=== PATIENT | male | born 1965 ===

== ENCOUNTER → 2020-03-04 12:38 | Outpatient (BNVA) | payer OTHER, SELFPAY | PROVIDERS: PCP Internal Medicine Endocrinology, Diabetes & Metabolism; Visit Provider Urology | DX: Z76.89 Persons encountering health services in other specified circumstances (principal) ==

== ENCOUNTER 2020-05-24 10:19 | Outpatient (REF) | payer OTHER, SELFPAY ==
--- NOTE | ~2020-05-24 | XR_ITS ---
EXAMINATION: XR HAND, LEFT CLINICAL INFORMATION: Mallet finger. COMPARISON: None TECHNIQUE: PA, lateral, and oblique views of the left hand. FINDINGS: No fracture or dislocation. Normal carpal alignment. No significant joint space narrowing or marginal osteophytes. No osseous erosion. No periarticular osteopenia. No abnormal soft tissue calcification. XR/XR hand LT min 3V IMPRESSION: Unremarkable examination.
== END 2020-05-24 10:20 | disposition home or self-care (01) ==
LOC: HO.HOSX 10:19
PROVIDERS: PCP Internal Medicine Endocrinology, Diabetes & Metabolism; Visit Provider Orthopaedic Surgery
DX: M20.012 Mallet finger of left finger(s) (principal)
CPT/HCPCS: 73130

== ENCOUNTER 2020-10-26 06:16 | Outpatient (REF) | payer OTHER, SELFPAY ==
[2020-10-26 06:59] LABS: MANUAL DIFF FLAG NO
[2020-10-26 07:04] LABS: Basophils Absolute Auto 0.1 X10*3/uL (0.0-0.2); Eosinophils Absolute Auto 0.3 X10*3/uL (0.0-0.4); Eosinophils Percent Auto 4.3 % (0-4); Hematocrit 45.7 % (42-52); Hemoglobin 15.1 g/dl (14.0-18.0); Imm Gran Abs Auto 0.02 X10*3/uL (0.00-0.03); Imm Gran Pct Auto 0.3 % (0.0-0.4); Lymphocytes Absolute Auto 2.1 X10*3/uL (1.2-4.9); Lymphocytes Percent Auto 30.3 % (20-40); Mean Corpuscular Hemoglobin 29.5 pg (27.0-33.0); Mean Corpuscular Volume 89.3 fL (80-98); Monocytes Absolute Auto 0.4 X10*3/uL (0.1-1.2); Neutrophils Percent Auto 58.1 % (45-73); Platelet Count 212 X10*3/uL (160-400); Red Blood Count 5.12 X10*6/uL (4.60-5.80); Red Cell Distribution Width 14.3 % (11.0-16.0); White Blood Count 6.8 X10*3/uL (4.8-10.8)
[2020-10-26 07:33] LABS: Alanine Aminotransferase 12 U/L (0-40); Albumin Level 4.5 g/dL (3.5-5.0); Alkaline Phosphatase 58 U/L (39-117); Amylase 49 U/L (28-100); Anion Gap 14 (12-20); Aspartate Amino Transferase 12 U/L (5-37); Bilirubin Total 0.9 mg/dL (0.0-1.0); Blood Urea Nitrogen 25 mg/dL (9-16); Calcium 9.5 mg/dL (8.4-10.2); Carbon Dioxide 27 mmol/L (22-29); Chloride 105 mmol/L (96-108); Estimated Glomerular Filt Rate > 60; Glucose Random 98 mg/dL (60-115); Lipase 29 U/L (8-78); Potassium 5.2 mmol/L (3.3-5.1); Sodium 141 mmol/L (135-145)
== END 2020-10-26 06:17 | disposition home or self-care (01) ==
LOC: HO.LAB 06:16
PROVIDERS: Visit Provider Anesthesiology
DX: R19.7 Diarrhea, unspecified (principal)
CPT/HCPCS: 36415; 80053; 82150; 83690; 85025

== ENCOUNTER → 2020-10-27 07:27 | Outpatient (REF) | payer OTHER, SELFPAY ==
--- NOTE | 2020-10-27 07:31 | CA_ITS ---
Transthoracic Echocardiogram Patient (Last, First, Middle): Evan Armstrong, Gender: Male Date of : 1965 Age: 54 Procedure Date: 10/27/2020 Procedure Type: Transthoracic Echocardiogram Location: OP Height: 175.26 cm Weight: 83.92 kg BSA: 2.00 m2 Heart Rate: bpm BP: 110 / 60 mmHg Endoscopy Support Specialist: EULALIA Dye MD: Evan Armstrong MD Telemarketer Supervisor: Mendoza Padilla MD Symptoms: HTN,PVC,ATRIAL ENLARGEMENT BILATERAL Study Quality: Good ECG Rhythm: Sinus Conclusions: - 1. Normal LV systolic and diastolic function 2. Mild left atrial enlargement 3. Normal cardiac valvular structure 4. Normal RV systolic pressure 5. No pericardial effusion Findings Left Ventricle Normal left ventricular size, thickness, and systolic function. The visually estimated ejection fraction is between 60-65%. Diastolic function is normal for age. Right Ventricle Normal right ventricular cavity size and systolic function. Atria The left atrium is mildly dilated. There is no evidence of interatrial shunt. The right atrium is normal in size. Aortic Valve Normal aortic valve structure and function. There is no aortic valve stenosis. There is no aortic valve regurgitation. Mitral Valve Normal mitral valve structure and function. There is trace mitral valve regurgitation. There is no mitral valve stenosis. Pulmonic Valve The pulmonic valve is likely normal. There is trace pulmonic valve regurgitation. Tricuspid Valve Normal tricuspid valve structure. There is trace tricuspid valve regurgitation. The right ventricular systolic pressure is normal. The right ventricular systolic pressure is 25 mmHg. Normal right atrial pressure. There is no evidence of pulmonary hypertension. Great Vessels All visible segments of the aorta are normal in size. The visualized portions of the pulmonary artery and branches are normal. Venous The inferior vena cava is normal in size and collapses greater than 50% with inspiration. Pericardium/Pleural There is no evidence of pericardial effusion. Prior Study Comparison Changes noted compared to prior study dated: 11/27/2019. Left atrium is mildly dilated, by volumetric method Measurements 2D Linear Measurements IVSd: 1.05 0.6-0.9/0.6-1.0 cm LVIDd: 5.09 3.9-5.3/4.2-5.9 cm LVIDd Index: 2.55 2.4-3.2/2.2-3.1 cm/m2 LVIDs: 3.36 2.0-3.6 cm LVPWd: 1.05 0.7-1.1 cm Ao Root: 3.60 2.1-3.5 cm LA Diam: 4.30 2.7-3.8/3.0-4.0 cm LAIDs Index: 2.15 1.5-2.3 cm/m2 LV Mass: 249.42 67-162/88-224 g LV Mass Index: 124.71 43-95/49-115 g/m2 LVOT Diam: 2.40 3.0+(-)1.3 cm 2D Systolic Function EF 4C: 59.00 >55% EF 2C: 58.00 >55% EF BiP: 59.00 >55% Mitral Valve MV Pk E: 0.52 MV PK A: 0.44 MV Decel Time: 502.00 E/A: 1.20 E'Lateral: 11.90 E'Medial: 7.40 E/E' Med: 7.00 E/E' Lat: 4.40 PHT: 147.00 MVA PHT: 1.50 Decel Brewster: 1.04 Aortic Valve AoV Pk Francisco Javier: 1.25 AoV Mn Francisco Javier: 0.86 AoV VTI: 0.31 AoV Pk Grad: 6.00 Aov Mn Grad: 3.00 HEAVEN Cont.VTI: 2.76 LVOT LVOT Pk Francisco Javier: 0.73 LVOT Mn Francisco Javier: 0.50 LVOT VTI: 0.19 LVOT Pk Grad: 2.00 LVOT Mn Grad: 1.00 LVOT Diam: 2.40 LVOT Area: 4.52 Diastolic Function MV Pk E: 0.52 MV Pk A: 0.44 E/A: 1.20 E'Medial: 7.40 E/E' Med: 7.00 E' Laterial: 11.90 E/E' Lat: 4.40 Tricuspid Valve TR Pk Francisco Javier: 2.36 TR Pk Grad: 22.00 RA Press: 3.00 RVSP: 25.00 Great Vessels Aorta Ao Root-2D: 3.60 2.0-3.7 cm Ao Asc: 3.00 2.1-3.4 cm Ao Arch: 3.10 Updated in Other Vendor System with Status of Final Mendoza Padilla MD electronically signed on 10/27/2020 9:00:22 AM with status of Final
== END ==
LOC: HO.CARD 07:27
PROVIDERS: Visit Provider Anesthesiology
DX: I10 Essential (primary) hypertension (principal); I49.3 Ventricular premature depolarization; I51.7 Cardiomegaly
CPT/HCPCS: 93306

== ENCOUNTER 2020-10-28 06:25 | Outpatient (REF) | payer OTHER, SELFPAY ==
[2020-10-28 07:28] LABS: C Reactive Protein 0.15 mg/dL (< or = 0.50)
[2020-10-28 07:52] LABS: TSH reflex Free T4 1.81 uIU/mL (0.32-4.0)
[2020-10-28 08:02] LABS: Erythrocyte Sedimentation Rate 2 MM/HR (0-15)
[2020-10-30 12:32] LABS: Immunoglobulin A 119 mg/dL (47-310)
[2020-10-30 14:32] LABS: Transglutaminase Ab IgG 1 U/mL; Transglutaminase IgA 1 U/mL
[2020-10-30 15:21] LABS: Gliadin Deamidated IgA Ab 3 Units; Gliadin Deamidated IgG Ab 1 Units
[2020-11-02 12:46] LABS: Endomysial IgA Antibody Negative (Negative)
== END 2020-10-28 06:26 | disposition home or self-care (01) ==
LOC: HO.LAB 06:25
PROVIDERS: Visit Provider Internal Medicine
DX: R19.4 Change in bowel habit (principal); R19.5 Other fecal abnormalities
CPT/HCPCS: 36415; 82784; 83516; 84443; 85652; 86140; 86255; 86256

== ENCOUNTER 2020-10-29 08:39 | Outpatient (REF) | payer OTHER, SELFPAY ==
[2020-10-29 09:52] LABS: CDiff Gene PCR NEGATIVE (Negative)
[2020-10-29 10:03] LABS: Leukocytes Stool Qualitative NEGATIVE (NEGATIVE)
== END 2020-10-29 08:40 | disposition home or self-care (01) ==
LOC: HO.LNP 08:39
PROVIDERS: Visit Provider Internal Medicine
DX: R19.4 Change in bowel habit (principal); R19.5 Other fecal abnormalities
CPT/HCPCS: 87045; 87046; 87177; 87209; 87329; 87493; 89055

== ENCOUNTER 2020-11-29 09:30 | Day surgery (SDC) | payer OTHER, SELFPAY ==
[2020-11-22 10:28] VITALS: BMI 26.9
--- NOTE | 2020-11-29 09:44 | P.CONAN_ITS ---
[facility] Active Problems Active Problems: All Active Problems (Updated 11/22/20 @ 10:29 by Pau mcdonald) Diarrhea (Acute) Mallet deformity of left middle finger (Acute) Past Medical History Medical History (Updated 11/22/20 @ 10:29 by Pau Putnam) Diarrhea Mallet deformity of left middle finger Pancreatic cyst Functional capacity: independent ambulation Family History Family history of problems with anesthesia: No Surgical History Surgical History H/O colonoscopy History of esophagogastroduodenoscopy (EGD) Hx of inguinal hernia repair History of Problems with Anesthesia: No Social History Social History Advance Directives: No Advance Directives Information Provided: Yes Meds Allergies Allergy/AdvReac Type Severity Reaction Status Date / Time No Known Allergies Allergy Verified 05/24/20 10:22 [No Known Allergies*] Active Medications: Current Medications Generic Name Dose Route Start Last Admin Trade Name Freq PRN Reason Stop Dose Admin Sodium Biphosphate/Sodium Phosphate 133 ml 11/29/20 09:43 Sodium Phosphate,[place]-Dibasic 133 Ml Enema IA ONCE PRN Poor Colonoscopy Prep Results Exam Exam Date and Time: November 29, 2020 0944 Height,Weight and Vital Signs: Height 5 ft 9.5 in Weight 83.915 kg Airway TM Dist: >3cm Neck ROM: Full Heart: RRR Lungs: CTA Assessment and Plan Final Anesthetic Review Family History of Problems with Anesthesia: No History of Problems with Anesthesia: No
[2020-11-29 10:06] VITALS: BMI 26.4
[2020-11-29] MEDS: Lactated Ringers 1,000 ML 50 ML IVCONT (10:21)
[2020-11-29 12:41] VITALS: BP 105/65; PULSE 58; RESP 16; TEMP 36.4; O2SAT 97
--- NOTE | 2020-11-29 12:43 | P.BOP_ITS ---
Brief Operative Note Date of Service: 11/29/20 Pre-op diagnosis: Change in BM's, Hx of colon polyps Post-op diagnosis: other (R/O microscopic colitis, Diverticulosis) Procedure: Colonoscopy to the cecum and TI with biopsies Surgeon: Dileep Taylor Anesthesia: MAC Was an Die Engraving Supervisor used for this Procedure?: No Estimated blood loss (mL): 3.0 Pathology: other (A. Terminal ileum B. Ascending colon C. Descending colon) Condition: stable Disposition: PACU
[2020-11-29 12:46] VITALS: BP 108/66; PULSE 62; RESP 16; O2SAT 98
[2020-11-29 12:51] VITALS: BP 105/71; PULSE 60; RESP 16; O2SAT 100
[2020-11-29 12:56] VITALS: BP 105/71; PULSE 68; RESP 16; O2SAT 98
--- NOTE | 2020-11-29 14:02 | OP_ITS ---
SURGEON: Dileep Taylor MD INDICATIONS: The patient presents for evaluation of change in bowel habits. Full consent has been obtained from him for this, including risks of bleeding and perforation. PREOPERATIVE DIAGNOSIS: Change in bowel habits. POSTOPERATIVE DIAGNOSIS: PROCEDURE PERFORMED: Colonoscopy to the cecum and terminal ileum with biopsies. ESTIMATED BLOOD LOSS: COMPLICATIONS: ANESTHESIA: ASSISTANTS: SPECIMENS: POSTOPERATIVE DIAGNOSES: Change in bowel habits, rule out microscopic colitis, mild diverticulosis, small internal hemorrhoids. DESCRIPTION OF PROCEDURE: The patient was placed in the left lateral decubitus position. The digital rectal exam revealed no abnormalities. The Olympus video pediatric colonoscope was entered into the rectum and advanced easily to the cecum. Once in the cecum, I did identify normal-appearing cecal pouch with appendiceal orifice and a normal-appearing ileocecal valve. The terminal ileum was cannulated and appeared normal. Biopsies were obtained. The scope was withdrawn back into the colon. The entire cecum and ileocecal valve appeared normal. The scope was slowly withdrawn assessing all mucosal surfaces carefully. Preparation was excellent. I did not visualize any sign of polyps, colitis, nor angiodysplasia. Random biopsies were obtained in the ascending and descending colon to rule out microscopic colitis. There was a mild amount of sigmoid diverticulosis. In the rectum, scope was retroflexed visualizing small internal hemorrhoids, but no other pathology. The rectal mucosa appeared normal. The scope was straightened out and withdrawn from the patient. He tolerated the procedure well and was returned to the recovery area in stable condition. IMPRESSION: 1. Mild sigmoid diverticulosis. 2. Small internal hemorrhoids. PLAN: The results of biopsies will be checked. At this point, he reports that his bowel movements have returned to the baseline. He will continue to be observed in this regard. Previous workup with stool specimens and laboratories, including testing for celiac disease were negative earlier this summer. I would recommend a repeat colonoscopy in 5 years given the reported history of previous colon polyps. He was advised not to use any aspirin and NSAIDs for 1 more week. MD CARLOS Correa/KAY / [id number]
== END 2020-11-29 13:20 | disposition home or self-care (01) ==
PROVIDERS: Visit Provider Internal Medicine
PROC: 0DJD8ZZ Inspection of Lower Intestinal Tract, Via Natural or Artificial Opening Endoscopic (ICD-10-PCS; CPT 45378; principal; 2020-11-29 11:00)
DX: R19.4 Change in bowel habit (principal); Z86.010 Personal history of colon polyps; K52.839 Microscopic colitis, unspecified; K57.30 Diverticulosis of large intestine without perforation or abscess without bleeding; K64.8 Other hemorrhoids; K86.2 Cyst of pancreas; I10 Essential (primary) hypertension; Z79.899 Other long term (current) drug therapy
CPT/HCPCS: 45380; 88305

== ENCOUNTER → 2021-02-03 08:28 | Outpatient (BNVA) | payer OTHER, SELFPAY | PROVIDERS: Visit Provider Internal Medicine Cardiovascular Disease | DX: I49.3 Ventricular premature depolarization (principal); I51.7 Cardiomegaly; Z79.899 Other long term (current) drug therapy | CPT/HCPCS: 93005 ==

== ENCOUNTER 2021-06-20 06:31 | Outpatient (REF) | payer OTHER, SELFPAY ==
[2021-06-20 07:12] LABS: Anion Gap 10 (12-20); Blood Urea Nitrogen 19 mg/dL (9-16); Calcium 9.4 mg/dL (8.4-10.2); Carbon Dioxide 29 mmol/L (22-29); Chloride 106 mmol/L (96-108); Estimated Glomerular Filt Rate > 60; Glucose Random 108 mg/dL (60-115); Potassium 5.1 mmol/L (3.3-5.1); Sodium 140 mmol/L (135-145)
[2021-06-20 07:17] LABS: B Type Natriuretic Peptide 14 pg/mL (<100)
== END 2021-06-20 06:32 | disposition home or self-care (01) ==
LOC: HO.LAB 06:31
PROVIDERS: Visit Provider Nurse Practitioner Family
DX: Z01.818 Encounter for other preprocedural examination (principal)
CPT/HCPCS: 36415; 80048; 83880

== ENCOUNTER 2021-06-22 07:12 | Outpatient (REF) | payer OTHER, SELFPAY ==
--- NOTE | ~2021-06-22 | MR_ITS ---
EXAMINATION: MR ABDOMEN WITHOUT AND WITH CONTRAST CLINICAL INFORMATION: Pancreatic cyst. Hepatic hemangioma. COMPARISON: 06/30/2019 TECHNIQUE: MR abdomen was performed without and with use of 8.5 mL intravenous Gadavist gadolinium contrast. Postcontrast images are performed in multiphase dynamic sequences. Imaging was performed in 3 planes. FINDINGS: LUNG BASES: The visualized lung bases are unremarkable. LIVER, GALLBLADDER, AND BILIARY TREE: The liver is normal in size, smooth in contour, and normal in signal. No biliary ductal dilatation is present. Again noted at the dome of the liver is a T2 bright, T1 dark lesion. This measures 2.1 cm. There is peripheral nodular enhancement, consistent with a hemangioma. No suspicious finding. There is a 1.1 cm simple cyst in segment 8 of the liver. This is unchanged. Additional smaller cysts are also again noted. No suspicious liver lesion. The gallbladder is unremarkable with no evidence of gallbladder wall thickening, or obvious pericholecystic inflammatory changes. PANCREAS: Unremarkable. The previously seen tiny cystic structure near the tail of the pancreas is no longer visualized. SPLEEN: Normal. ADRENAL GLANDS: Normal. KIDNEYS AND URETERS: The kidneys are normal in size, shape, and enhance symmetrically. No hydronephrosis. No perinephric stranding. 0.5 cm simple cyst anteriorly at the midpole of the right kidney. GASTROINTESTINAL TRACT: No bowel obstruction. No ascites or fluid collection. ABDOMINAL WALL: No significant hernia is appreciated. LYMPH NODES: No lymphadenopathy. VASCULAR: Normal caliber aorta. Patent portal vein. OSSEOUS STRUCTURES: Marrow signal normal. MR/MR abdomen wo/w con IMPRESSION: No suspicious liver lesions. Hemangioma at the dome of the liver again noted. Multiple hepatic cysts. The previously seen tiny cystic structure at the tail of the pancreas is no longer visualized.
== END 2021-06-22 07:13 | disposition home or self-care (01) ==
LOC: HO.MRI 07:12
PROVIDERS: Visit Provider Internal Medicine
DX: K86.2 Cyst of pancreas (principal); D18.03 Hemangioma of intra-abdominal structures
CPT/HCPCS: 74183; A9585

== ENCOUNTER 2021-07-13 06:46 | Outpatient (REF) | payer OTHER, SELFPAY ==
[2021-07-13 07:56] LABS: Alanine Aminotransferase 13 U/L (0-40); Albumin Level 4.4 g/dL (3.5-5.0); Alkaline Phosphatase 60 U/L (39-117); Aspartate Amino Transferase 15 U/L (5-37); Bilirubin Direct < 0.2 mg/dL (0.0-0.5); Bilirubin Total 0.3 mg/dL (0.0-1.0); Blood Urea Nitrogen 25 mg/dL (9-16); Estimated Glomerular Filt Rate > 60; Total Protein 6.8 g/dL (6.5-8.0)
[2021-07-14 12:32] LABS: Alpha Fetoprotein 1.3 ng/mL (<6.1)
[2021-07-14 15:11] LABS: Carbohydrate Antigen 19-9 5 U/mL (<34)
== END 2021-07-13 06:47 | disposition home or self-care (01) ==
LOC: HO.LAB 06:46
PROVIDERS: Visit Provider Internal Medicine
DX: K86.2 Cyst of pancreas (principal); D18.03 Hemangioma of intra-abdominal structures
CPT/HCPCS: 36415; 80076; 82105; 82565; 84520; 86301

== ENCOUNTER 2021-09-19 12:46 | Outpatient (REF) | payer OTHER, SELFPAY | END 2021-09-19 12:47 | disposition home or self-care (01) | LOC: HO.HOSX 12:46 | PROVIDERS: Visit Provider Orthopaedic Surgery | DX: Z13.89 Encounter for screening for other disorder (principal) ==

== ENCOUNTER 2021-09-23 09:00 | Outpatient (REF) | payer OTHER, SELFPAY ==
--- NOTE | ~2021-09-23 | XR_ITS ---
EXAMINATION: XR HAND, RIGHT CLINICAL INFORMATION: Pain COMPARISON: Previous x-ray most recent 09/05/2021 TECHNIQUE: PA, lateral, and oblique views of the right hand. FINDINGS: There is an oblique oblique nondisplaced fracture of the midshaft of the fourth metacarpal bone. Alignment appears unchanged. Fracture line is still seen. No significant bony callus formation is seen. No other fracture is seen. There is periarticular soft tissue swelling adjacent to the PIP joint of the fourth finger. Joint spaces and soft tissues are otherwise normal. XR/XR hand RT min 3V IMPRESSION: No change in the nondisplaced fracture of the shaft of the fourth metacarpal bone. Periarticular soft tissue swelling adjacent to the PIP joint of the fourth finger.
== END 2021-09-23 09:01 | disposition home or self-care (01) ==
LOC: HO.XRAY 09:00
PROVIDERS: Visit Provider Orthopaedic Surgery
DX: M79.641 Pain in right hand (principal)
CPT/HCPCS: 73130

== ENCOUNTER → 2022-01-16 07:11 | Outpatient (REF) | payer OTHER, SELFPAY ==
--- NOTE | 2022-01-16 07:15 | CA_ITS ---
Transthoracic Echocardiogram Patient (Last, First, Middle): Evan Armstrong, Gender: Male Date of : 1965 Age: 56 Procedure Date: 01/16/2022 Procedure Type: Transthoracic Echocardiogram Location: OP Height: 175.26 cm Weight: 81.65 kg BSA: 1.98 m2 Heart Rate: bpm BP: 130 / 90 mmHg Regional Business Development Manager: ALAN Referring MD: Mendoza Padilla MD Wood Inspector: Mendoza Padilla MD Symptoms: I49.3 - Ventricular premature depolarization Study Quality: Good ECG Rhythm: Sinus Conclusions: - 1. Normal LV systolic function with grade 1 diastolic dysfunction 2. Normal cardiac valvular Doppler 3. Normal RV systolic pressure 4. No pericardial effusion Findings Left Ventricle Normal left ventricular size, thickness, and systolic function. The visually estimated ejection fraction is between 60-65%. Spectral Doppler is indicative of an impaired relaxation filling pattern. E/E prime ratio is <8, consistent with normal filling pressures. Evidence suggests grade I (mild) diastolic dysfunction. Right Ventricle Normal right ventricular cavity size and systolic function. Atria The left atrium is likely dilated. The right atrium is normal in size. Aortic Valve Normal aortic valve structure and function. There is no aortic valve stenosis. There is no aortic valve regurgitation. Mitral Valve Normal mitral valve structure and function. There is trace mitral valve regurgitation. There is no mitral valve stenosis. Pulmonic Valve The pulmonic valve was not well visualized. Tricuspid Valve Likely normal tricuspid valve structure and function. There is trace tricuspid valve regurgitation. The right ventricular systolic pressure is normal. The right ventricular systolic pressure is 21 mmHg. Normal right atrial pressure. There is no evidence of pulmonary hypertension. Great Vessels All visible segments of the aorta are normal in size. The pulmonary artery was not well visualized. Venous The inferior vena cava is normal in size and collapses greater than 50% with inspiration. Pericardium/Pleural There is no evidence of pericardial effusion. Prior Study Comparison No significant change compared to prior study dated: 10/27/2020. Measurements 2D Linear Measurements IVSd: 1.05 0.6-0.9/0.6-1.0 cm LVIDd: 4.82 3.9-5.3/4.2-5.9 cm LVIDd Index: 2.43 2.4-3.2/2.2-3.1 cm/m2 LVIDs: 3.55 2.0-3.6 cm LVPWd: 1.16 0.7-1.1 cm LA Diam: 4.20 2.7-3.8/3.0-4.0 cm LAIDs Index: 2.12 1.5-2.3 cm/m2 LV Mass: 244.87 67-162/88-224 g LV Mass Index: 123.67 43-95/49-115 g/m2 LVOT Diam: 2.20 3.0+(-)1.3 cm 2D Systolic Function EF 4C: 57.30 >55% EF 2C: 63.00 >55% EF BiP: 59.40 >55% Mitral Valve MV Pk E: 0.46 MV PK A: 0.51 MV Decel Time: 285.00 E/A: 0.90 E'Lateral: 9.90 E'Medial: 7.94 E/E' Med: 5.80 E/E' Lat: 4.70 PHT: 84.00 MVA PHT: 2.62 Decel Cowley: 1.62 Aortic Valve AoV Pk Francisco Javier: 1.19 AoV Mn Francisco Javier: 0.83 AoV VTI: 0.28 AoV Pk Grad: 6.00 Aov Mn Grad: 3.00 HEAVEN Cont.VTI: 2.93 LVOT LVOT Pk Francisco Javier: 0.83 LVOT Mn Francisco Javier: 0.60 LVOT VTI: 0.22 LVOT Pk Grad: 3.00 LVOT Mn Grad: 2.00 LVOT Diam: 2.20 LVOT Area: 3.80 Diastolic Function MV Pk E: 0.46 MV Pk A: 0.51 E/A: 0.90 E'Medial: 7.94 E/E' Med: 5.80 E' Laterial: 9.90 E/E' Lat: 4.70 Right Ventricle TAPSE (mm): 24.40 TVS' Francisco Javier: 8.70 Tricuspid Valve TR Pk Francisco Javier: 2.12 TR Pk Grad: 18.00 RA Press: 3.00 RVSP: 21.00 Great Vessels Aorta Sinus of Valsalva: 3.36 2.0-3.5 cm Ao Asc: 3.00 2.1-3.4 cm Updated in Other Vendor System with Status of Final Mendoza Padilla MD electronically signed on 01/16/2022 6:34:36 PM with status of Final
== END ==
LOC: HO.CARD 07:11
PROVIDERS: Visit Provider Internal Medicine Cardiovascular Disease
DX: I49.3 Ventricular premature depolarization (principal)
CPT/HCPCS: 93306

== ENCOUNTER → 2022-02-14 15:07 | Outpatient (BNVA) | payer OTHER, SELFPAY | PROVIDERS: Visit Provider Internal Medicine Cardiovascular Disease | DX: I49.3 Ventricular premature depolarization (principal); I10 Essential (primary) hypertension | CPT/HCPCS: 93005 ==

== ENCOUNTER 2022-05-24 11:27 | Outpatient (REF) | payer OTHER, SELFPAY ==
--- NOTE | ~2022-05-24 | MR_ITS ---
EXAMINATION: MR BRAIN WITHOUT AND WITH CONTRAST CLINICAL INFORMATION: New persistent daily headache. COMPARISON: None available. TECHNIQUE: MRI of the brain was obtained using routine sequences without and following the administration of 8.5 mL of Gadavist intravenous contrast. FINDINGS: No focal restricted diffusion is demonstrated to suggest acute or subacute cerebral ischemia. No evidence of acute or chronic hemorrhagic products on heme-sensitive imaging. Minimal nonspecific scattered periventricular and deep white matter T2 FLAIR hyperintensities most commonly seen with mild underlying microangiopathy. The ventricles are normal in morphology and size. No abnormal mass effect. No midline shift. Normal appearance of the pituitary gland. The suprasellar cistern remains widely patent. Normal positioning of the cerebellar tonsils. Normal arterial and venous vascular flow voids are present. No abnormal contrast enhancement. Normal, homogeneous marrow signal. Mild mucosal thickening of the paranasal sinuses. No signal abnormalities within the mastoids. MR/MR head/brain wo/w con IMPRESSION: 1. No acute intracranial abnormalities. No abnormal intracranial enhancement. 2. Minimal nonspecific white matter changes most commonly seen with mild underlying microangiopathy. 3. No additional MRI abnormalities to explain the patient's symptoms.
== END 2022-05-24 11:28 | disposition home or self-care (01) ==
LOC: HO.MRI 11:27
PROVIDERS: Visit Provider Psychiatry & Neurology Neurology
DX: G44.52 New daily persistent headache (NDPH) (principal)
CPT/HCPCS: 70553; A9585

== ENCOUNTER 2022-09-28 08:12 | Outpatient (REF) | payer OTHER, SELFPAY ==
[2022-09-28 08:36] LABS: Appearance Urine Clear; Color Urine Yellow; Glucose Urine UA Negative (Negative); Leukocyte Esterase Urine Negative (Negative); Nitrite Urine Negative (Negative); PH 6.5 (5.0-9.0); Urine Blood Negative (Negative); Urine Ketones Negative (Negative); Urine Protein Negative (Neg-Trace)
[2022-09-28 08:41] LABS: Bacteria Urine None Seen (None Seen); Hyaline Casts Urine 0-2 /LPF (0-2); RBC Urine 0-2 /HPF (0-2); Squamous Epithelial Cell Urine 0-2 /HPF (0-2); WBC Urine 0-5 /HPF (0-5)
== END 2022-09-28 08:13 | disposition home or self-care (01) ==
LOC: HO.LNP 08:12
PROVIDERS: Visit Provider Anesthesiology
DX: N39.0 Urinary tract infection, site not specified (principal)
CPT/HCPCS: 81001; 87086

== ENCOUNTER 2023-02-26 08:12 | Outpatient (AMB) | payer OTHER, SELFPAY ==
--- NOTE | 2023-02-26 08:19 | A.OFFVIS_ITS ---
Intake Vital Signs 02/26/23 08:20 Height 5 ft 9.5 in Weight 196 lb 3.382 oz BMI 28.6 BP 112/78 Blood Pressure Location Lt brachial Position Sitting Pulse 65 Intake Visit Reasons: 1 yr f/up Intake Note: 1 year follow-up with ekg feeling good Staff Mine Warfare Officer Required: No Allergies No Known Allergies [No Known Allergies*] Allergy (Verified 11/29/20 10:23) Medication List - Last Reconciled 02/26/23 by Mendoza Padilla MD irbesartan 150 mg PO DAILY 30 days HPI HPI Comments History of Present Illness Details Evan comes for follow-up. He has been doing very well. He has had no recurrent symptoms of palpitations related to his PVCs. Blood pressure is generally well controlled. He exercises as no exertional chest pain or shortness of breath. No lightheadedness, syncope. [facility] Medical History PVCs (premature ventricular contractions) Pancreatic cyst Diarrhea Mallet deformity of left middle finger Surgical History Hx of inguinal hernia repair History of esophagogastroduodenoscopy (EGD) H/O colonoscopy Family History Father No problems noted. Mother No problems noted. Social History Patient Tobacco Use Status: Never used Tobacco Review of Systems Const Denies chills, Denies fatigue, Denies fever(s), Denies frequent falls, Denies w eakness, Denies weight gain and Denies weight loss ENT Denies dizziness Card Denies chest pain, Denies leg edema, Denies lightheadedness, Denies palpi tations, Denies dyspnea, Denies dyspnea on exertion, Denies orthopnea and Denies other (loss of consciousness) Resp Denies cough, Denies dyspnea and Denies dyspnea on exertion GI Denies hematochezia and Denies change in stool character Musc Denies abnormal gait, Denies muscle weakness, Denies numbness, Denies radiating pain into limb and Denies tingling Neuro Denies abnormal gait, Denies dizziness, Denies frequent falls, Denies numbness, Denies tingling and Denies weakness Endo Denies fatigue and Denies palpitations Physical Exam Vital Signs: Last Vital Signs Pulse 65 02/26/23 08:20 BP 112/78 02/26/23 08:20 BMI result Body Mass Index 28.6 Const General: cooperative, comfortable, no acute distress, alert and awake Nutritional Appearance: average body habitus Orientation/consciousness: patient oriented x3 Limitations: no limitations Neck Neck: Yes trachea midline and Yes no JVD Resp Effort & Inspection: normal respiratory effort Auscultation: clear to auscultation bilaterally Cardio Jugular venous distension: no JVD Palpation: normal PMI Rate: regular rate Rhythm: regular rhythm Heart sounds: S1 normal heart sound present, S2 normal heart sound present, no click, no gallops, no murmurs and no rubs GI Auscultation: normal bowel sounds Skin General skin exam: no rashes or lesions noted Neuro General: patient oriented x3 and no focal motor deficits Extrem General: Yes no clubbing, cyanosis or edema Psych Appearance: grossly normal Office Procedures EKG Details: EKG shows normal sinus rhythm with normal EKG at 65 beats per minute [id number], Complete Assessment & Plan Assessment & Plan (1) PVCs (premature ventricular contractions): Code(s): I49.3 - Ventricular premature depolarization Plan: PVCs which have been suppressed and doing well from symptomatic perspective. Prior workup has shown normal structure of the heart. Symptoms were most likely triggered by stress personal stressful situation. No specific therapy recommended this point time. Continue participate in stress mitigation strategies in blood pressure control. Avoidance of stimulants was discussed advised to call me with new symptoms. (2) HTN (hypertension): Code(s): I10 - Essential (primary) hypertension Plan: Hypertension which is extremely well optimized. Continue current therapy. Importance of good blood pressure control was discussed intermittent log of blood pressure to be discussed. His calculated ten year risk is 5.2% and will discussed with him about further risk stratification with coronary calcium score. Will follow with him if need be. Thank you for allowing me to partake in his care Coding Level of Care Code Est Pt Level 4 (74061) Diagnoses PVCs (premature ventricular contractions) I49.3 HTN (hypertension) I10 CPT Codes EKG - CPT: 03578-[id number], Complete ([id number])
[2023-02-26 08:20] VITALS: BP 112/78; PULSE 65; BMI 28.6
== END 2023-02-26 08:43 | disposition home or self-care (01) ==
PROVIDERS: Visit Provider Internal Medicine Cardiovascular Disease
DX: I49.3 Ventricular premature depolarization (principal); I10 Essential (primary) hypertension
CPT/HCPCS: 93010; 99214

== ENCOUNTER → 2023-02-26 08:12 | Outpatient (BNVA) | payer OTHER, SELFPAY | PROVIDERS: Visit Provider Internal Medicine Cardiovascular Disease | DX: I49.3 Ventricular premature depolarization (principal); I10 Essential (primary) hypertension | CPT/HCPCS: 93005 ==

== ENCOUNTER 2023-04-03 11:55 | Outpatient (REF) | payer OTHER, SELFPAY ==
[2023-04-03 12:11] LABS: MANUAL DIFF FLAG NO
[2023-04-03 12:27] LABS: Basophils Percent Auto 0.5 % (0-2); Eosinophils Absolute Auto 0.1 X10*3/uL (0.0-0.4); Eosinophils Percent Auto 2.2 % (0-4); Hematocrit 45.3 % (42.0-52.0); Hemoglobin 14.8 g/dl (14.0-18.0); Imm Gran Abs Auto 0.01 X10*3/uL (0.00-0.03); Imm Gran Pct Auto 0.2 % (0.0-0.4); Lymphocytes Absolute Auto 1.8 X10*3/uL (1.2-4.9); Lymphocytes Percent Auto 31.2 % (20-40); Mean Corpuscular HGB Conc 32.7 g/dl (31.0-36.0); Mean Corpuscular Hemoglobin 28.8 pg (27.0-33.0); Mean Corpuscular Volume 88.1 fL (80.0-98.0); Mean Platelet Volume 10.1 fL (9.4-12.4); Monocytes Absolute Auto 0.5 X10*3/uL (0.1-1.2); Monocytes Percent Auto 7.8 % (2-11); Neutrophils Absolute Auto 3.4 x10*3/uL (2.0-8.3); Neutrophils Percent Auto 58.1 % (45-73); Platelet Count 214 X10*3/uL (160-400); Red Blood Count 5.14 X10*6/uL (4.60-5.80); Red Cell Distribution Width 14.1 % (11.0-16.0); White Blood Count 5.8 X10*3/uL (4.8-10.8)
[2023-04-03 13:19] LABS: Alanine Aminotransferase 20 U/L (0-40); Albumin Level 4.3 g/dL (3.5-5.0); Alkaline Phosphatase 65 U/L (39-117); Amylase 47 U/L (28-100); Anion Gap 11 (12-20); Aspartate Amino Transferase 18 U/L (5-37); Bilirubin Direct 0.1 mg/dL (0.0-0.5); Bilirubin Total 0.4 mg/dL (0.0-1.0); Blood Urea Nitrogen 20 mg/dL (9-16); Calcium 9.4 mg/dL (8.4-10.2); Carbon Dioxide 27 mmol/L (22-29); Chloride 107 mmol/L (96-108); Estimated Glomerular Filt Rate > 60; Glucose Random 87 mg/dL (60-115); Lipase 17 U/L (8-78); Potassium 4.4 mmol/L (3.3-5.1); Sodium 141 mmol/L (135-145); Total Protein 7.1 g/dL (6.5-8.0)
[2023-04-03 15:55] LABS: Appearance Urine Clear; Color Urine Yellow; Glucose Urine UA Negative (Negative); Leukocyte Esterase Urine Negative (Negative); Nitrite Urine Negative (Negative); PH 5.5 (5.0-9.0); Specific Gravity - Urine 1.025 (1.005-1.025); Urine Blood Negative (Negative); Urine Ketones Negative (Negative); Urine Protein Negative (Neg-Trace)
== END 2023-04-03 11:56 | disposition home or self-care (01) ==
LOC: HO.LAB 11:55
PROVIDERS: Visit Provider Internal Medicine
DX: R10.31 Right lower quadrant pain (principal)
CPT/HCPCS: 36415; 80048; 80076; 81003; 82150; 83690; 85025

== ENCOUNTER 2023-04-18 14:02 | Outpatient (REF) | payer OTHER, SELFPAY ==
--- NOTE | ~2023-04-18 | CT_ITS ---
EXAMINATION: CT ABDOMEN AND PELVIS WITH CONTRAST CLINICAL INFORMATION: Follow-up pancreatic cyst. COMPARISON: MRI examinations of the abdomen dated 06/22/2021, 06/30/2019 and 11/30/2016. TECHNIQUE: Multidetector volumetric images were obtained from the superior aspect of the liver through the pubic symphysis following administration 85 mL of Omnipaque 350 intravenous contrast. Sagittal and coronal reformatted images were obtained on the technologist's workstation. Oral contrast: No This CT examination was performed using dose optimization techniques as appropriate, variously including the following: *Automated exposure control *Adjustment of mA and/or kV according to patient size (this includes techniques or standardized protocols for targeted exams where dose is matched to indication/reason for exam; i.e. extremities or head) *Use of iterative reconstruction technique DLP: 479 mGy-cm FINDINGS: LUNG BASES: There is mild bibasilar dependent hypoaeration. LIVER, GALLBLADDER, AND BILIARY TREE: The liver is normal in size, shape, and attenuation. Within the right hepatic lobe towards the dome of the diaphragm (6:98), a previously characterized 1.7 cm benign hemangioma is redemonstrated. There are 2 further previously characterized benign, simple right hepatic lobe cysts (6:148 and 266). No new focal hepatic lesion or biliary ductal dilatation is present. The gallbladder is unremarkable, with no evidence of radiopaque gallstones, gallbladder wall thickening or obvious pericholecystic inflammatory changes. PANCREAS: Unremarkable. Corresponding with the MRI findings dated 06/22/2021, no pancreatic cyst is presently noted. No mass, focal enlargement, ductal dilatation or peripancreatic acute fluid collection or fat stranding are noted. SPLEEN: Unremarkable. ADRENAL GLANDS: Unremarkable. KIDNEYS AND URETERS: The kidneys are normal in size, shape, and attenuation. No hydronephrosis, hydroureter, or calculi seen. Previously characterized benign, simple bilateral renal cysts are seen, for which no imaging follow-up is recommended. No perinephric stranding. BLADDER: Unremarkable. GASTROINTESTINAL TRACT: The small and large bowel are unremarkable. The appendix is unremarkable. ABDOMINAL WALL: There is a small to moderate fat-containing right inguinal hernia. LYMPH NODES: Normal. VASCULAR: Unremarkable. PELVIC VISCERA: There is prostatomegaly, with a transverse span of 5.2 cm. The seminal vesicles are unremarkable. OSSEOUS STRUCTURES: There is multi-level slight thoracolumbar spondylosis. There is mild degenerative disc disease at T10-T11, with slight vacuum disc phenomenon. No acute or aggressive osseous finding is noted. CT/CT abdomen pelvis w IV con IMPRESSION: 1.Corresponding with the MRI findings dated 06/22/2021, no pancreatic cyst is presently noted. 2. Benign hepatic and bilateral renal cysts are noted, which require no imaging follow-up. 3. A previously characterized benign hemangioma is redemonstrated within the right hepatic lobe towards the dome of the diaphragm. 4. A small to moderate fat-containing right inguinal hernia is seen. 5. There is prostatomegaly. 6. There are very mild degenerative changes of the thoracolumbar spine. 7. Scattered 1 mm noncalcified bibasilar lung nodules are noted. According to the UPDATED 2017 Fleischner Society recommendations, the advised follow-up imaging for solid nodules < 6 mm is: LOW RISK PATIENT: No routine follow-up. HIGH RISK PATIENT: Optional CT at [address] evaluation of the thorax for more complete evaluation. Fleischner guidelines were followed.
== END 2023-04-18 14:03 | disposition home or self-care (01) ==
LOC: HO.CT 14:02
PROVIDERS: Visit Provider Internal Medicine
DX: R10.31 Right lower quadrant pain (principal); K59.00 Constipation, unspecified
CPT/HCPCS: 74177; Q9967

== ENCOUNTER 2023-07-06 08:22 | Outpatient (REF) | payer OTHER, SELFPAY ==
[2023-07-06 09:56] LABS: CDiff Gene PCR NEGATIVE (Negative)
== END 2023-07-06 08:23 | disposition home or self-care (01) ==
LOC: HO.LNP 08:22
PROVIDERS: Visit Provider Internal Medicine
DX: R10.9 Unspecified abdominal pain (principal); K58.9 Irritable bowel syndrome, unspecified
CPT/HCPCS: 87177; 87209; 87329; 87493; 87507

== ENCOUNTER 2023-07-12 08:08 | Outpatient (REF) | payer OTHER, SELFPAY ==
[2023-07-12 14:08] LABS: Adenovirus F 40/41 Not Detected (Not Detect.); Astrovirus Not Detected (Not Detect.); Campylobacter Not Detected (Not Detect.); Cryptosporidium Not Detected (Not Detect.); Cyclospora cayetanensis Not Detected (Not Detect.); E. coli EAEC Not Detected (Not Detect.); E. coli EPEC Not Detected (Not Detect.); E. coli ETEC Not Detected (Not Detect.); E. coli STEC Not Detected (Not Detect.); Entamoeba histolytica Not Detected (Not Detect.); Giardia lamblia Not Detected (Not Detect.); Norovirus GI/GII Not Detected (Not Detect.); Plesiomonas shigelloides Not Detected (Not Detect.); Rotavirus A Not Detected (Not Detect.); Salmonella Not Detected (Not Detect.); Sapovirus Not Detected (Not Detect.); Shigella sp./EIEC Not Detected (Not Detect.); Vibrio Not Detected (Not Detect.); Vibrio Cholerae Not Detected (Not Detect.); Yersinia enterocolitica Not Detected (Not Detect.)
== END 2023-07-12 08:09 | disposition home or self-care (01) ==
LOC: HO.LNP 08:08
PROVIDERS: Visit Provider Internal Medicine
DX: R10.9 Unspecified abdominal pain (principal); K58.9 Irritable bowel syndrome, unspecified
CPT/HCPCS: 87507

== ENCOUNTER 2023-10-11 13:52 | Outpatient (AMB) | payer OTHER, SELFPAY ==
--- NOTE | 2023-10-11 13:58 | A.OFFVIS_ITS ---
Vital Signs 10/11/23 14:01 Height 5 ft 9.5 in Intake Visit Reasons: hernia Intake Note: Patient is seen in office for evaluation and treatment of a right inguinal hernia. Pt c/o: reports significant pain but it is not constant, reports standing for prolongs periods can make pain worse and certain foods can make him gassy this can trigger his pain, right inguinal region. CT: 04/18/23 Diabetes Territory Manager Required: No Accompanied by: Self / Same As Patient Allergies No Known Allergies [No Known Allergies*] Allergy (Verified 10/11/23 14:06) Medication List - Last Reconciled 10/11/23 by Garth Colvin MD irbesartan 150 mg PO DAILY 30 days HPI Comments Details: 57-year-old male patient presenting for evaluation of a right inguinal hernia. He previously underwent repair of a left inguinal hernia with mesh but now feels a similar lump in the right side. This increases in size with lifting and straining but does reduce when in the supine position. He denies nausea or vomiting. Denies a previous history of surgery on this side. [facility] Medical History PVCs (premature ventricular contractions) Pancreatic cyst Diarrhea Mallet deformity of left middle finger Surgical History Hx of inguinal hernia repair History of esophagogastroduodenoscopy (EGD) H/O colonoscopy Family History Father No problems noted. Mother No problems noted. Social History Patient Tobacco Use Status: Never used Tobacco Review of Systems Const All systems reviewed & are unremarkable except as noted in HPI and below Physical Exam Const General: cooperative and no acute distress Nutritional Appearance: well nourished Orientation/consciousness: patient oriented x3 Limitations: no limitations HEENT Head: Yes normocephalic and Yes atraumatic Ears: hearing grossly normal bilaterally Resp Effort & Inspection: normal respiratory effort, no audible wheezes, no cough and no respiratory distress Cardio Jugular venous distension: no JVD GI Other: Palpable right inguinal hernia noted in the standing position which increases with Valsalva but then reduces easily with light pressure. Well-healed incision in the left groin with no palpable hernia. Inspection: Yes normal to inspection Skin Other: Warm, dry, no rash Neuro General: patient oriented x3 Extrem General: Yes no clubbing, cyanosis or edema Assessment & Plan Assessment & Plan (1) Reducible right inguinal hernia: Code(s): K40.90 - Unilateral inguinal hernia, without obstruction or gangrene, not specified as recurrent Category: Medical Plan 57-year-old male patient presenting with a reducible right inguinal hernia confirmed on examination. I recommended repair of this right inguinal hernia with mesh and after discussion of the procedure, risks and alternatives, he consents to the surgery. He will be scheduled as a short-stay surgery at his earliest convenience. Coding Level of Care Code New Pt Level 4 (30537) Diagnoses Reducible right inguinal hernia K40.90
== END 2023-10-11 14:15 | disposition home or self-care (01) ==
PROVIDERS: Visit Provider Surgery
DX: K40.90 Unilateral inguinal hernia, without obstruction or gangrene, not specified as recurrent (principal)
CPT/HCPCS: 99204

== ENCOUNTER → 2023-10-11 13:52 | Outpatient (BNVA) | payer OTHER, SELFPAY | PROVIDERS: Visit Provider Surgery ==

== ENCOUNTER → 2023-11-09 14:58 | Outpatient (BNVA) | payer OTHER, SELFPAY | PROVIDERS: Visit Provider Physician Assistant Medical | DX: Z13.89 Encounter for screening for other disorder (principal) | CPT/HCPCS: 84450; 84460; 85025; 86803; 87389; 99203 ==

== ENCOUNTER → 2023-11-12 11:28 | Outpatient (BNVA) | payer OTHER, SELFPAY | PROVIDERS: Visit Provider Physician Assistant Medical | DX: Z13.89 Encounter for screening for other disorder (principal) | CPT/HCPCS: 99213 ==

== ENCOUNTER 2023-11-26 05:52 | Day surgery (SDC) | payer OTHER, SELFPAY ==
[2023-11-22 07:54] VITALS: BMI 28.5
--- NOTE | 2023-11-23 09:22 | P.CONAN_ITS ---
HPI - Anesthesia Eval Consult details Narrative: 58yo M for Right Hernia Inguinal Reducible with mesh Follows [facility] [place] [place] cardiology for PVCs and htn. Stable at 02/2023 office visit with prn f/u only. PMFSH Active Problems Active Problems: All Active Problems Reducible right inguinal hernia (Acute) UTI (urinary tract infection) (Acute) HTN (hypertension) (Acute) Closed fracture of shaft of fourth metacarpal bone of right hand (Acute) Preprocedural examination (Acute) PVCs (premature ventricular contractions) (Acute) Diarrhea (Acute) Mallet deformity of left middle finger (Acute) Past Medical History Medical History PVCs (premature ventricular contractions) Pancreatic cyst Diarrhea Mallet deformity of left middle finger Family History Family History Father No problems noted. Mother No problems noted. Family history of problems with anesthesia: No Surgical History Surgical History Hx of inguinal hernia repair History of esophagogastroduodenoscopy (EGD) H/O colonoscopy History of Problems with Anesthesia: No Social History Social History Patient Tobacco Use Status: Never used Tobacco Meds Allergies Allergy/AdvReac Type Severity Reaction Status Date / Time Tetanus Vaccines and Toxoid AdvReac Rash Verified 12/03/23 09:04 Exam Height,Weight and Vital Signs: Height 5 ft 9.5 in Weight 88.904 kg Narrative Narrative: EKG 2022 normal sinus rhythm with normal EKG at 65 beats per minute ECHO Conclusions: - 1. Normal LV systolic function with grade 1 diastolic dysfunction 2. Normal cardiac valvular Doppler 3. Normal RV systolic pressure 4. No pericardial effusion Assessment and Plan Assessment Anesthesia Assessment: Chart Reviewed Final Anesthetic Review Family History of Problems with Anesthesia: No History of Problems with Anesthesia: No
[2023-11-26] VITALS (10 sets, daily range): BP systolic 153–177; BP diastolic 79–99; PULSE 66–103; RESP 16–20; TEMP 36.4–36.8; O2SAT 94–100; BMI 28.5
[2023-11-26] MEDS: Lactated Ringers 1,000 ML 100 ML IVCONT (06:17)
--- NOTE | 2023-11-26 07:12 | MHC.SHP ---
Pre-Procedural Eval Section A - 24 Hr Update-Section A only Date of Service: 11/26/23 The patient is an INPATIENT: No Changes since office visit: Yes Patient answered all questions; No Cold of Flu in the past 2 weeks, No New Medical Problems and No Changes in Medication The patient has been examined within 24 hours of the surgical procedure. The History & Physical has been completed within 30 days and I have reviewed it.: Yes Section B - Complete if H&P > 30 days Chief Complaint: Unilateral inguinal hernia, without obstruction or Relevant Family History (Specify if Yes): No Relevant Social History: None Present Medications: see Short Stay Collaborative assessment Medical History: No relevant PMH History of Previous Operations: No relevant previous surgery Allergies: Allergies Allergy/AdvReac Type Severity Reaction Status Date / Time No Known Allergies Allergy Verified 11/26/23 06:14 [No Known Allergies*] Review of Systems Sugical H&P ROS: Negative: Constitution, Cardiovascular, Respiratory, Neurological, Psychiatric, Hem-Onc, Allergic/Immunologic, Gastrointestinal, Genitourinary, Musculoskeletal, Integumentary, Endocrine and Eyes/Ears/Nose/Throat Exam Surgical H&P Exam: Normal: HEENT, Normal: Heart, Normal: Lungs, Normal: Extremities, Normal: Abdomen, Normal: Skin and Normal: Neurological Plan Diagnosis/Plan: Unchanged I have reviewed the history and physical and performed a pertinent physical examination on my patient. No changes have occurred unless specified. Time Spent With Patient Time: Total time managing care of this patient today ____ minutes.
--- NOTE | 2023-11-26 07:57 | HO.ANESPROP2 ---
[facility] Active Problems Active Problems: All Active Problems Reducible right inguinal hernia (Acute) UTI (urinary tract infection) (Acute) HTN (hypertension) (Acute) Closed fracture of shaft of fourth metacarpal bone of right hand (Acute) Preprocedural examination (Acute) PVCs (premature ventricular contractions) (Acute) Diarrhea (Acute) Mallet deformity of left middle finger (Acute) Past Medical History Medical History PVCs (premature ventricular contractions) Pancreatic cyst Diarrhea Mallet deformity of left middle finger Functional capacity: independent ambulation Family History Family History Father No problems noted. Mother No problems noted. Family history of problems with anesthesia: No Surgical History Surgical History Hx of inguinal hernia repair History of esophagogastroduodenoscopy (EGD) H/O colonoscopy History of Problems with Anesthesia: No Social History Social History Patient Tobacco Use Status: Never used Tobacco Are you DNR?: No Advance Directives: No Advance Directives Information Provided: Yes Nutrition Risks: No Nutritional Risk Meds Allergies Allergy/AdvReac Type Severity Reaction Status Date / Time Tetanus Vaccines and Toxoid AdvReac Rash Verified 11/26/23 07:27 Active Medications: Current Medications Lactated Ringer's (Lr) 1,000 mls @ 100 mls/hr IVCONT .Q10H JOSE Last Admin: 11/26/23 06:17 Dose: 100 mls/hr Exam Height,Weight and Vital Signs: Height 5 ft 9.5 in Weight 88.9 kg Last Vital Signs Temp 98.2 F 11/26/23 06:20 Pulse 67 11/26/23 06:20 Resp 18 11/26/23 06:20 BP 153/94 H 11/26/23 06:20 Pulse Ox 98 11/26/23 06:20 O2 Del Method Room Air 11/26/23 06:20 Airway Mallampati Class: II TM Dist: >3cm Neck ROM: Full Heart: RRR Lungs: CTA Assessment and Plan Assessment Anesthesia Assessment: Anesthesia Plan Discussed Final Anesthetic Review Family History of Problems with Anesthesia: No History of Problems with Anesthesia: No NPO: Yes ASA Class: II Final Preanesthetic Review: Meds/Allgs Chart Reviewed, Consent Obtained/Reviewed and Anes Risks/Benef Reviewed Patient Risk: Low Procedure Risk: Low Anesthetic Plan Anesthetic Plan: GA Disposition: Standard PACU
--- NOTE | 2023-11-26 08:28 | P.OP_ITS ---
Operative Note Operative Note Date of Service: 11/26/23 Narrative: Preoperative diagnosis: Right inguinal hernia, reducible Postoperative diagnosis: Same Procedure: Repair of right inguinal hernia, reducible with mesh Surgeon: Garth Colvin MD Record Clerk Salesperson: Marleni Meraz PA-C, RADHA Blackburn Anesthesia: General LMA Indications for procedure: 58-year-old male patient presenting with complaints of a lump in the right groin which is causing discomfort especially with prolonged standing. On examination patient was found to have a reducible right inguinal hernia. No left inguinal hernias identified. Operative findings: Indirect left inguinal hernia, reducible Specimen: Lipoma of the cord right side Estimated blood loss: 2 mL Complications: None Procedure details: Patient was brought to the OR and placed in a supine position. After administering general anesthesia the patient's abdomen was prepped with ChloraPrep and draped in a sterile fashion. A surgical time-out was called the consent confirmed. Patient received preoperative antibiotics and Venodyne boots were in place. Incision was then made with a scalpel over the right inguinal ligament and carried out through subcutaneous tissue, past Molly's fashion up to the external oblique aponeurosis. This was then incised with a scalpel widened with the Metzenbaum scissors. Spermatic cord was then dissected free from the surrounding inguinal canal and retracted using a Dakota drain. The floor of the inguinal canal was found to be intact without hernia. Fibers of the cremaster muscle were then and a large lipoma of the cord identified. A small sac was also identified. The sac and lipoma were dissected down to the internal ring. This was then ligated with a 0 Polysorb suture and divided. The internal ring was then dissected with an open Ray-Antony sponge and a preperitoneal space created. A large PHS mesh was obtained and the circular underlay deployed within the preperitoneal space. The overlay was then secured to the pubic tubercle, conjoined tendon, and shelving edge of the inguinal ligament using 0 Polysorb sutures. A slit was made in the mesh at the level of the internal ring and wrapped around the spermatic cord. This was then secured to the shelving edge using the 0 Polysorb suture. Wounds were then irrigated and suctioned dry. The internal ring was tight enough to allow only the tip of the index finger to pass. No nerve entrapment could be identified. 20 mL of Exparel was mixed with 30 mL of Marcaine and infiltrated throughout the incision. External oblique aponeurosis was then closed using a running 2-0 Polysorb suture. Molly's fascia and dermis were reapproximated using interrupted 3-0 Polysorb sutures. Skin was then closed using a running subcuticular 4-0 Polysorb suture. Steri-Strips, 4 x 4 gauze and Tegaderm were then applied. The patient tolerated the procedure well. Sponge, instrument, and needle counts reported as correct. The patient was transferred to PACU in stable condition.
[2023-11-26] MEDS: fentaNYL citrate/PF 100 MCG/2 ML VIAL 25 MCG IVPUSH (09:29)
--- NOTE | 2023-11-26 14:22 | HO.POSTANES ---
Post Anesthesia Evaluation Post Anesthesia Evaluation Date of Service: 11/26/23 Vital Signs: Vital Signs Temp Pulse Resp BP Pulse Ox O2 Del Method 11/26/23 10:00 97.5 F 69 18 167/95 H 98 Room Air 11/26/23 09:45 69 20 177/99 H 100 Room Air 11/26/23 09:34 66 20 160/96 H 97 Room Air 11/26/23 09:29 77 16 165/88 H 97 Room Air 11/26/23 09:29 16 11/26/23 09:17 87 16 155/80 H 96 Room Air 11/26/23 09:02 84 16 162/89 H 98 Room Air 11/26/23 08:57 89 16 155/90 H 96 Room Air 11/26/23 08:52 86 16 164/89 H 94 Room Air 11/26/23 08:47 97.6 F 103 H 16 171/79 H 99 Room Air 11/26/23 06:20 98.2 F 67 18 153/94 H 98 Room Air Anesthesia: General LMA Mental Status: Awake Pain Control: Satisfactory Nausea/Vomiting: None Hydration: Adequate Anesthesia-Related Issues: No Anes. Related Issues
== END 2023-11-26 10:24 | disposition home or self-care (01) ==
PROVIDERS: Visit Provider Surgery
PROC: (CPT 49505; principal; 2023-11-26 07:30)
DX: K40.90 Unilateral inguinal hernia, without obstruction or gangrene, not specified as recurrent (principal); D17.6 Benign lipomatous neoplasm of spermatic cord; K86.2 Cyst of pancreas; I49.3 Ventricular premature depolarization; Z79.899 Other long term (current) drug therapy; Z98.890 Other specified postprocedural states
CPT/HCPCS: 49505; 88304; C1781; C9290; J0665; J0690; J1100; J2250; J2405; J2704; J2795; J3010

== ENCOUNTER → 2023-11-26 05:52 | Outpatient (BNV) | payer OTHER, SELFPAY | PROVIDERS: Visit Provider Surgery | DX: K40.90 Unilateral inguinal hernia, without obstruction or gangrene, not specified as recurrent (principal) | CPT/HCPCS: 49505 ==

== ENCOUNTER 2023-12-03 08:45 | Outpatient (AMB) | payer OTHER, SELFPAY ==
--- NOTE | 2023-12-03 09:03 | MHC.OFFVIS ---
Intake Visit Reasons: S/P RIH w/mesh Intake Note: Patient here s/p RIH repair on 11-26-2023. Patient c/o: tenderness, redness. Denies oozing. Requesting another rx for pain meds. Movie Extra Required: No Accompanied by: Self / Same As Patient Allergies Tetanus Vaccines and Toxoid Adverse Reaction (Verified 12/03/23 09:04) Rash Medication List - Last Reconciled 12/03/23 by Willie Martin MD irbesartan 150 mg PO DAILY 30 days ondansetron 4 mg PO Q8H PRN oxycodone 5 mg PO Q6H PRN HPI Comments Details: Patient whom I know well. He is Status post open right inguinal hernia repair by Dr. Colvin. Dr. Colvin is currently in the OR and unable to see patient today. Patient is doing relatively well. He has incisional discomfort. He is tolerating a diet. He is having regular bowel habits. [facility] Medical History PVCs (premature ventricular contractions) Pancreatic cyst Diarrhea Mallet deformity of left middle finger Surgical History Hx of inguinal hernia repair History of esophagogastroduodenoscopy (EGD) H/O colonoscopy Family History Father No problems noted. Mother No problems noted. Social History Patient Tobacco Use Status: Never used Tobacco Physical Exam GI Other: Abdomen is soft. Incision clean dry and intact healing very well Assessment & Plan Assessment & Plan (1) Status post inguinal hernia repair, follow-up exam: Code(s): Z09 - Encounter for follow-up examination after completed treatment for conditions other than malignant neoplasm Category: Surgical Plan Patient was reassured that he has only 1 week postop and will take at least 4-6 weeks before he is fully convalesced. He can slowly but steadily increasing his activity level to but should do no strenuous or heavy lifting for another 3-4 weeks. Note will be provided for work. All questions answered. Renewal of pain meds undertaken. Patient will follow-up with Dr. Colvin and a proximally 2 weeks time or p.r.n. all questions answered Medications: New oxycodone Partial Fill upon patient request. 5 mg PO Q8H PRN 30 tabs 0RF pain Coding Level of Care Code Global (41012) Diagnoses Status post inguinal hernia repair, follow-up exam Z09
== END 2023-12-03 09:31 | disposition home or self-care (01) ==
PROVIDERS: Visit Provider Surgery
DX: Z09 Encounter for follow-up examination after completed treatment for conditions other than malignant neoplasm (principal)
CPT/HCPCS: 99024

== ENCOUNTER → 2023-12-03 08:45 | Outpatient (BNVA) | payer OTHER, SELFPAY | PROVIDERS: Visit Provider Surgery | DX: Z09 Encounter for follow-up examination after completed treatment for conditions other than malignant neoplasm (principal); Z87.19 Personal history of other diseases of the digestive system | CPT/HCPCS: 99212 ==

== ENCOUNTER 2023-12-11 08:45 | Outpatient (REF) | payer OTHER, SELFPAY ==
--- NOTE | ~2023-12-11 | XR_ITS ---
EXAMINATION: XR CHEST CLINICAL INFORMATION: Fever COMPARISON: None available. TECHNIQUE: 2 views of the chest were obtained. FINDINGS: The lungs are adequately expanded. No focal consolidation. No pleural effusions, edema or pneumothorax. The cardiomediastinal silhouette is within normal limits. No acute osseous abnormality. XR/XR chest 2V IMPRESSION: No acute pulmonary disease. Electronically signed by: Sergio Brown MD 12/11/2023 01:21 PM EDT
[2023-12-11 09:01] LABS: MANUAL DIFF FLAG NO
[2023-12-11 09:14] LABS: Basophils Percent Auto 0.5 % (0-2); Eosinophils Absolute Auto 0.1 X10*3/uL (0.0-0.4); Imm Gran Abs Auto 0.01 X10*3/uL (0.00-0.03); Imm Gran Pct Auto 0.2 % (0.0-0.4); Lymphocytes Absolute Auto 1.3 X10*3/uL (1.2-4.9); Lymphocytes Percent Auto 20.3 % (20-40); Mean Corpuscular HGB Conc 32.6 g/dl (31.0-36.0); Mean Corpuscular Hemoglobin 27.6 pg (27.0-33.0); Mean Corpuscular Volume 84.6 fL (80.0-98.0); Mean Platelet Volume 9.6 fL (9.4-12.4); Monocytes Absolute Auto 0.6 X10*3/uL (0.1-1.2); Monocytes Percent Auto 9.4 % (2-11); Neutrophils Absolute Auto 4.3 x10*3/uL (2.0-8.3); Neutrophils Percent Auto 67.6 % (45-73); Platelet Count 234 X10*3/uL (160-400); Red Blood Count 5.44 X10*6/uL (4.60-5.80); Red Cell Distribution Width 13.4 % (11.0-16.0); White Blood Count 6.4 X10*3/uL (4.8-10.8)
[2023-12-11 09:42] LABS: Amylase 32 U/L (28-100)
[2023-12-11 09:51] LABS: Alanine Aminotransferase 18 U/L (0-40); Albumin Level 4.2 g/dL (3.5-5.0); Alkaline Phosphatase 111 U/L (39-117); Anion Gap 12 (12-20); Aspartate Amino Transferase 12 U/L (5-37); Bilirubin Total 0.5 mg/dL (0.0-1.0); Blood Urea Nitrogen 23 mg/dL (9-16); Calcium 10.3 mg/dL (8.4-10.2); Carbon Dioxide 26 mmol/L (22-29); Chloride 106 mmol/L (96-108); Estimated Glomerular Filt Rate > 60; Glucose Random 115 mg/dL (60-115); Sodium 139 mmol/L (135-145); Total Protein 7.3 g/dL (6.5-8.0)
[2023-12-11 09:56] LABS: Erythrocyte Sedimentation Rate 34 MM/HR (0-15)
[2023-12-11 10:13] LABS: HBc Num1 0.09 S/CO (0.00-0.79); HBsAGNum1 0.31 S/CO (0.00-0.99); Hepatitis A Antibody IgM 0.26 Index (0-0.79); Hepatitis A Antibody IgM 0.29 Index (0-0.79); Hepatitis B Core Antibody Nonreactive (Nonreactive); Hepatitis B Surface Antigen Negative (Negative); ~HepC Num1 1.22 S/CO (0.00-0.79); ~Hepatitis A Antibody IgM Nonreactive (Nonreactive); ~Hepatitis B Surface Antibody REACTIVE (Nonreactive); ~Hepatitis C Antibody Reactive (Nonreactive)
[2023-12-12 12:19] LABS: HCV Log PCR <1.18 NOT DETECTED Log IU/mL (NOT DETECTED); HepC Viral Load <15 NOT DETECTED IU/mL (NOT DETECTED)
[2023-12-12 14:54] LABS: CRP High Sensitivity >20.0 mg/L
== END 2023-12-11 08:46 | disposition home or self-care (01) ==
LOC: HO.LAB 08:45
PROVIDERS: Internal Medicine; Referring Provider Anesthesiology; Visit Provider Nurse Practitioner Family
DX: Z09 Encounter for follow-up examination after completed treatment for conditions other than malignant neoplasm (principal); R50.9 Fever, unspecified; R19.7 Diarrhea, unspecified; K40.90 Unilateral inguinal hernia, without obstruction or gangrene, not specified as recurrent; Z77.21 Contact with and (suspected) exposure to potentially hazardous body fluids; R50.82 Postprocedural fever
CPT/HCPCS: 36415; 71046; 80053; 82150; 85025; 85652; 86141; 86704; 86706; 86709; 86803; 87340; 87522; 99212

== ENCOUNTER 2023-12-11 10:31 | Outpatient (AMB) | payer OTHER, SELFPAY ==
--- NOTE | 2023-12-11 10:33 | MHC.OFFVIS ---
Vital Signs 12/11/23 10:43 Height 5 ft 9.5 in Weight 183 lb BMI 26.6 BP 120/80 Blood Pressure Location Lt brachial Position Sitting Intake Visit Reasons: wound check - fever Intake Note: Patient is seen in office for wound check, post repair of right inguinal hernia, reducible with mesh. Pt c/o: states for the past few days fever, sweats, abdominal bloating, pain in the incision, temp was 101. took Tylenol and Ibuprofen as needed Integration Technician Required: No Accompanied by: Self / Same As Patient Allergies Tetanus Vaccines and Toxoid Adverse Reaction (Verified 12/11/23 10:44) Rash HPI Comments Details: Returning 2 weeks following repair of a right inguinal hernia. He reports complaints of pain in the incision with surrounding numbness. He reports feeling tired, weak with fever, and rigors. Was concerned he may have a pneumonia although denies coughing or phlegm. He is moving his bowels on a daily basis in his stopped taking the pain medication. He reports the incision is not red or swollen. Does not appear infected. [facility] Medical History PVCs (premature ventricular contractions) (Unknown) Pancreatic cyst Diarrhea Mallet deformity of left middle finger Surgical History H/O right inguinal hernia repair (11/26/23) Hx of inguinal hernia repair History of esophagogastroduodenoscopy (EGD) H/O colonoscopy Family History Father No problems noted. Mother No problems noted. Social History Patient Tobacco Use Status: Never used Tobacco Physical Exam Vital Signs: Last Vital Signs BP 120/80 12/11/23 10:43 BMI result Body Mass Index 26.6 Const General: no acute distress Nutritional Appearance: well nourished Orientation/consciousness: patient oriented x3 Limitations: no limitations Resp Effort & Inspection: normal respiratory effort Auscultation: clear to auscultation bilaterally, no crackles, no rales and no rhonchi GI Other: Right inguinal hernia incision is clean and intact. No hernia noted with Valsalva maneuvers. No ecchymosis or hematoma. Testes are descended. Inspection: Yes normal to inspection and Yes incision (Clean, dry, and intact) Palpation (GI): Soft to palpation and Tenderness to palpation present (GI) (Right groin.) Abdomen image: 1. Incision right groin Neuro General: patient oriented x3 Assessment & Plan Assessment & Plan (1) Status post inguinal hernia repair, follow-up exam: Code(s): Z09 - Encounter for follow-up examination after completed treatment for conditions other than malignant neoplasm Category: Surgical (2) Fever: Code(s): R50.9 - Fever, unspecified Category: Medical Qualifiers: Fever type: post-procedural Qualified Code(s): R50.82 - Postprocedural fever Plan 58-year-old male patient status post repair of right inguinal hernia now with complaints of fever and rigors. There is no evidence of wound infection in his wounds are healing nicely. No evidence of hernia recurrence as well. Lungs do sound clear however I will order a chest x-ray to evaluate for pneumonia. We will also repeat CT abdomen and pelvis with contrast. Follow-up after CT results. Orders: Orders XR chest 2V Today R50.9 - Fever, unspecified, Z09 - Encounter for follow-up examination after completed treatment for conditions other than malignant neoplasm CT abdomen pelvis w IV con Today R50.9 - Fever, unspecified, Z09 - Encounter for follow-up examination after completed treatment for conditions other than malignant neoplasm Referrals Infectious Disease Referral R50.9 - Fever, unspecified, Z09 - Encounter for follow-up examination after completed treatment for conditions other than malignant neoplasm Coding Level of Care Code Global (43677) Diagnoses Status post inguinal hernia repair, follow-up exam Z09 Post-procedural fever R50.82 Fever type: post-procedural
[2023-12-11 10:43] VITALS: BP 120/80; BMI 26.6
== END 2023-12-11 10:56 | disposition home or self-care (01) ==
PROVIDERS: Visit Provider Surgery
DX: Z09 Encounter for follow-up examination after completed treatment for conditions other than malignant neoplasm (principal); R50.82 Postprocedural fever
CPT/HCPCS: 99024

== ENCOUNTER 2023-12-13 11:04 | Outpatient (REF) | payer OTHER, SELFPAY ==
--- NOTE | ~2023-12-13 | CT_ITS ---
EXAMINATION: CT ABDOMEN AND PELVIS WITH CONTRAST CLINICAL INFORMATION: Fever COMPARISON: CT abdomen and pelvis 04/18/2023 MRI abdomen 06/30/2019 TECHNIQUE: Multidetector volumetric images were obtained from the superior aspect of the liver through the pubic symphysis following administration 85 mL of Omnipaque 350 intravenous contrast. Sagittal and coronal reformatted images were obtained on the technologist's workstation. Oral contrast: No This CT examination was performed using dose optimization techniques as appropriate, variously including the following: *Automated exposure control *Adjustment of mA and/or kV according to patient size (this includes techniques or standardized protocols for targeted exams where dose is matched to indication/reason for exam; i.e. extremities or head) *Use of iterative reconstruction technique DLP: 654 mGy-cm FINDINGS: LUNG BASES: The visualized lung bases are unremarkable. LIVER, GALLBLADDER, AND BILIARY TREE: The liver is normal in size, shape, and attenuation. 2 benign water density cysts are present in the right lobe of the liver. There is a 1.2 cm non water density mass seen in the right lobe of the liver just below the dome of the hemidiaphragm previously shown to be a hemangioma. No concerning or new focal hepatic lesion or biliary ductal dilatation is present. The gallbladder is unremarkable with no evidence of radiopaque gallstones, gallbladder wall thickening, or obvious pericholecystic inflammatory changes. PANCREAS: Unremarkable. SPLEEN: Unremarkable. ADRENAL GLANDS: Unremarkable. KIDNEYS AND URETERS: The kidneys are normal in size, shape, and attenuation. No hydronephrosis, hydroureter, or calculi seen. No perinephric stranding. BLADDER: Unremarkable. GASTROINTESTINAL TRACT: The terminal ileum is grossly abnormal and thickened new finding when compared to the prior study. Minimal inflammatory change seen in the surrounding retroperitoneal fat. There is associated soft tissue thickening/mass in the cecum. At the time of the prior study the appendix was filled with air. On the current exam the appendix contains no air and is mildly dilated measuring 9 mm compared to 5 mm previously (2:55 compare prior 3:54). This appears to be obstructed by the soft tissue mass in the cecum. No periappendiceal inflammatory changes are seen The remainder of the small and large bowel are unremarkable. ABDOMINAL WALL: No definite hernia is seen but there is some fluid in both inguinal canals, right greater than left which measures 4.5 x 2.4 x 2.0 cm. LYMPH NODES: There are multiple new enlarged lymph nodes in the cecal mesentery which were not present previously with the largest measuring about 1 cm in short axis dimension (see nieto images). VASCULAR: There is mild dilatation of the portal vein and splenic vein suggesting portal hypertension with varices in the splenic vanessa. The aorta and iliofemoral vessels appear normal. The IVC and iliac veins are normal. PELVIC VISCERA: There is moderate BPH with mildly prominent seminal vesicles, unchanged from prior. OSSEOUS STRUCTURES: Unremarkable. CT/CT abdomen pelvis w IV con IMPRESSION: 1. Abnormal terminal ileum and cecum. Differential diagnosis would include inflammatory bowel disease such as Crohn's disease. Malignancy, such as lymphoma, however cannot be excluded. Cecal carcinoma is felt to be unlikely. Atypical infection such as TB would also be within the differential diagnosis. 2. The appendix is mildly dilated but no periappendiceal inflammatory changes are seen to suggest acute appendicitis. 3. Incidental note made of hepatic cysts and hemangioma, BPH and fluid in both inguinal canals, right greater than left. Fleischner guidelines were followed. Electronically signed by: Bobby Graves MD 12/13/2023 05:09 PM EDT
[2023-12-13] MEDS: iohexoL 350 MG/ML 100 ML INFUS..BTL 85 ML IV (13:50)
[2023-12-13] MEDS: Barium Sulfate Oral (Vanilla) 450 ML ORAL.SUSP 900 ML PO (13:50)
== END 2023-12-13 11:05 | disposition home or self-care (01) ==
LOC: HO.CT 11:04
PROVIDERS: Visit Provider Surgery
DX: R50.9 Fever, unspecified (principal)
CPT/HCPCS: 74177; Q9967

== ENCOUNTER 2023-12-14 13:17 | Outpatient (REF) | payer OTHER, SELFPAY ==
[2023-12-14 14:43] LABS: CDiff Gene PCR NEGATIVE (Negative)
[2023-12-15 08:45] LABS: Adenovirus F 40/41 Not Detected (Not Detect.); Astrovirus Not Detected (Not Detect.); Campylobacter Not Detected (Not Detect.); Cryptosporidium Not Detected (Not Detect.); Cyclospora cayetanensis Not Detected (Not Detect.); E. coli EAEC Not Detected (Not Detect.); E. coli EPEC Not Detected (Not Detect.); E. coli ETEC Not Detected (Not Detect.); E. coli STEC Not Detected (Not Detect.); Entamoeba histolytica Not Detected (Not Detect.); Giardia lamblia Not Detected (Not Detect.); Norovirus GI/GII Not Detected (Not Detect.); Plesiomonas shigelloides Not Detected (Not Detect.); Rotavirus A Not Detected (Not Detect.); Salmonella Not Detected (Not Detect.); Sapovirus Not Detected (Not Detect.); Shigella sp./EIEC Not Detected (Not Detect.); Vibrio Not Detected (Not Detect.); Vibrio Cholerae Not Detected (Not Detect.)
[2023-12-15 09:12] LABS: Yersinia enterocolitica Detected (Not Detect.)
[2023-12-21 19:18] LABS: Calprotectin, Fecal 292 mcg/g
== END 2023-12-14 13:18 | disposition home or self-care (01) ==
LOC: HO.LNP 13:17
PROVIDERS: Visit Provider Anesthesiology
DX: R50.82 Postprocedural fever (principal); R19.7 Diarrhea, unspecified
CPT/HCPCS: 83993; 87015; 87177; 87207; 87209; 87329; 87338; 87493; 87507

== ENCOUNTER 2023-12-14 13:57 | Emergency (ER) | payer OTHER, SELFPAY ==
--- NOTE | ~2023-12-14 | CT_ITS ---
STUDY PERFORMED: CTA ABDOMEN AND PELVIS WITHOUT AND WITH CONTRAST HISTORY: Abdominal pain, evaluate portal vein thrombosis DESCRIPTION: Abdomen and pelvis CTA protocol with contrast was performed. 100 mL of Omnipaque 350 was administered. Arterial phase and delayed phase images are obtained 3D POSTPROCESSING: Multiple 3-D angiographic images were processed from the initial data set by the mri technologist at the modality workstation under concurrent physician supervision. DOSE LOWERING TECHNIQUES: This CT examination was performed using dose optimization techniques as appropriate, variously including the following: - Automated exposure control - Adjustment of mA and/or kV according to patient size (this includes techniques or standardized protocols for targeted exams where dose is matched to indication/reason for exam; i.e. extremities or head) - Use of iterative reconstruction technique DLP: 937 mGycm. COMPARISON: CT from 12/13/2023 FINDINGS: VASCULAR: ABDOMINAL AORTA: Normal caliber and widely patent. RIGHT LOWER EXTREMITY: Iliac and visualized femoral arteries are normal in caliber and widely patent. LEFT LOWER EXTREMITY: Iliac and visualized femoral arteries are normal in caliber and widely patent. CELIOMESENTERIC ARTERIES: Patent. Splenic artery is markedly tortuous RENAL ARTERIES: Single bilateral renal arteries are present and widely patent. VENOUS: IVC and iliac veins are patent. The superior mesenteric vein, splenic vein and portal veins are patent. NONVASCULAR: Lung Bases: The visualized lung bases are unremarkable. Liver, Gallbladder and Biliary Tree: The liver is normal in size, shape, and attenuation. No biliary ductal dilatation is present. Stable simple cyst seen in the right lower liver. There is a hypodense lesion within the dome of the liver measuring 1.6 cm consistent with a hemangioma. The gallbladder is unremarkable with no evidence of radiopaque gallstones, gallbladder wall thickening, or obvious pericholecystic inflammatory changes. Pancreas: Unremarkable. Spleen: Unremarkable. Adrenal Glands: Unremarkable. Kidneys and Ureters: The kidneys are normal in size, shape, and attenuation. No hydronephrosis, hydroureter, or calculi seen. No perinephric stranding. Stable bilateral renal cysts Bladder: Unremarkable. Gastrointestinal Tract: Circumferential bowel wall thickening again seen of the distal/terminal ileum which is unchanged compared to the prior exam. There is mild thickening of the appendix which is also unchanged compared to prior exam. Asymmetric bowel wall thickening involving the cecum is again unchanged. Associated lymphadenopathy along the ileocolic mesentery. No evidence of bowel obstruction Abdominal Wall: No significant hernia is appreciated. Lymph Nodes: Enlarged lymph nodes again seen along the ileocolic mesentery which are unchanged. Pelvic Viscera: Unremarkable. Osseous Structures: Unremarkable. CT/CT angio abdomen pelvis IMPRESSION: 1. No evidence of portal vein thrombosis. 2. Stable bowel wall thickening involving the distal/terminal ileum and cecum with associated lymphadenopathy. Findings are unchanged compared to the prior exam. 3. Stable hepatic cysts and hemangioma. Electronically signed by: Aquiles Cosme MD 12/14/2023 04:12 PM EDT
[2023-12-14 14:02] VITALS: BP 133/81; PULSE 105; RESP 18; TEMP 36.8; O2SAT 100; BMI 27.1
--- NOTE | 2023-12-14 14:03 | ED.ABDPAIN ---
HPI - Abdominal Pain General Chief Complaint: Abdominal Pain Stated Complaint: Needs cat scan Time Seen by Provider: 12/14/23 14:07 Related Data Previous Rx's ?Medication ?Instructions ?Recorded irbesartan 150 mg tablet 150 mg PO DAILY 30 days #30 tabs 05/03/22 ondansetron 4 mg disintegrating 4 mg PO Q8H PRN nausea and 11/09/23 tablet vomiting #10 tabs oxycodone 5 mg tablet 5 mg PO Q6H PRN pain (scale score 12/03/23 7-10) #15 tabs amoxicillin 875 mg-potassium 1 tab PO BID #20 tabs 12/14/23 clavulanate 125 mg tablet Allergies Allergy/AdvReac Type Severity Reaction Status Date / Time Tetanus Vaccines and Toxoid AdvReac Rash Verified 12/14/23 14:04 [facility]LY [facility] Past Medical History Medical History PVCs (premature ventricular contractions) (Unknown) Pancreatic cyst Diarrhea Mallet deformity of left middle finger Surgical History H/O right inguinal hernia repair (11/26/23) Hx of inguinal hernia repair History of esophagogastroduodenoscopy (EGD) H/O colonoscopy Family History Family History Father No problems noted. Mother No problems noted. Social History Social History Patient Tobacco Use Status: Never used Tobacco Advance Directives: No Advance Directives Information Provided: No Do you have a plan to hurt others: No Plan Physical Exam ED Vital Signs: Vital Signs - 24 hr 12/14/23 14:02 Temperature 98.2 F Pulse Rate 105 H Respiratory Rate 18 Blood Pressure 133/81 Pulse Oximetry 100 Oxygen Delivery Method Room Air BMI result Body Mass Index 27.1 Course Course Course Narrative: This is a Rapid Medical Examination (RME) performed by Margarita Mancilla PA-C in triage. Full HPI, ROS, assessment and treatment plan per primary provider in the Main ED. 58 yo male s/p right inguinal hernia repair on 11/26/23 here for eval of increased pain to right lower abd and fevers. followed up w/ Dr. Colvin on 12/13/23. has CT abd/pelvis w/ and w/o con. was called by dr who reported concern for portal hypertension. was told to come to ED for further scans. Plan: further eval by primary ED provider Reevaluation(s) Reevaluation #1: Please refer to Dr. Dunaway's completed note regarding patient's visit on 12/14/2023. Medical Decision Making Lab Data 12/14/23 14:26 12/14/23 14:26 Labs: Lab Results 12/14/23 Range/Units 14:26 WBC 6.9 (4.8-10.8) X10*3/uL RBC 5.08 (4.60-5.80) X10*6/uL Hgb 14.1 (14.0-18.0) g/dl Hct 42.4 (42.0-52.0) % MCV 83.5 (80.0-98.0) fL MCH 27.8 (27.0-33.0) pg MCHC 33.3 (31.0-36.0) g/dl RDW 13.4 (11.0-16.0) % Plt Count 229 (160-400) X10*3/uL MPV 9.5 (9.4-12.4) fL Immature Gran % (Auto) 0.6 H (0.0-0.4) % Neut % (Auto) 68.0 (45-73) % Lymph % (Auto) 18.1 L (20-40) % [place] % (Auto) 10.7 (2-11) % Eos % (Auto) 2.2 (0-4) % Baso % (Auto) 0.4 (0-2) % Lymph # (Auto) 1.3 (1.2-4.9) X10*3/uL [place] # (Auto) 0.7 (0.1-1.2) X10*3/uL Eos # (Auto) 0.2 (0.0-0.4) X10*3/uL Baso # (Auto) 0.0 (0.0-0.2) X10*3/uL Abs Immat Gran (auto) 0.04 H (0.00-0.03) X10*3/uL Absolute Neuts (auto) 4.7 (2.0-8.3) x10*3/uL Absolute Nucleated RBC 0.000 (0.0-0.012) X10*3/uL Nucleated RBC % (auto) 0.0 (0.0-0.2) /100WBC Medications Administered Generic Name Dose Route Start Last Admin Trade Name Freq PRN Reason Stop Dose Admin Lactated Ringer's 1,000 mls @ 999 mls/hr 12/14/23 14:45 12/14/23 14:45 Lr IV 12/14/23 15:45 999 mls/hr .Q1H1M JOSE Administration Discharge Plan Discharge Prescriptions: No Action irbesartan 150 mg tablet 150 mg PO DAILY 30 Days Qty: 30 11RF oxycodone 5 mg tablet 5 mg PO Q6H PRN (Reason: pain (scale score 7-10)) Qty: 15 0RF Rx Instructions: Partial Fill upon patient request. amoxicillin-pot clavulanate 875-125 mg tablet 1 tab PO BID Qty: 20 0RF ondansetron 4 mg tablet,disintegrating 4 mg PO Q8H PRN (Reason: nausea and vomiting) Qty: 10 0RF Print Language: Ukrainian
--- NOTE | 2023-12-14 14:21 | ED_ITS ---
HPI - Abdominal Pain General Chief Complaint: Abdominal Pain Stated Complaint: Needs cat scan Time Seen by Provider: 12/14/23 14:07 Source: patient Mode of arrival: ambulatory Limitations: no limitations History of Present Illness HPI narrative: This is a 4 years old male presented to the emergency department complaining of abdominal pain he is status post hernia repair on November 25, his pulse up course was complicated by abdominal pain and fever he had a CT scan of the abdomen and pelvis yesterday which showed some inflammatory changes. There was sent here by his surgeon Dr. Herrera to get a CT angiogram of the abdomen MD elicited complaint: abdominal pain Pertinent past history: none Onset (ago): day(s) (4) Pain Consistency: constant Location: none Severity: mild Quality: cramping Radiation: none Migration to: no migration Exacerbating factors: nothing Related Data Previous Rx's ?Medication ?Instructions ?Recorded irbesartan 150 mg tablet 150 mg PO DAILY 30 days #30 tabs 05/03/22 ondansetron 4 mg disintegrating 4 mg PO Q8H PRN nausea and 11/09/23 tablet vomiting #10 tabs oxycodone 5 mg tablet 5 mg PO Q6H PRN pain (scale score 12/03/23 7-10) #15 tabs amoxicillin 875 mg-potassium 1 tab PO BID #20 tabs 12/14/23 clavulanate 125 mg tablet Allergies Allergy/AdvReac Type Severity Reaction Status Date / Time Tetanus Vaccines and Toxoid AdvReac Rash Verified 12/14/23 14:04 Review of Systems Reports system reviewed and no additional complaints, except as documented Cardiovascular: Reports no additional cardiovascular complaints Gastrointestinal: Reports no additional gastrointestinal complaints PMFSH Past Medical History Attestation statement: The following information was validated with the patient. Source: unable to obtain Medical History PVCs (premature ventricular contractions) (Unknown) Pancreatic cyst Diarrhea Mallet deformity of left middle finger Surgical History H/O right inguinal hernia repair (11/26/23) Hx of inguinal hernia repair History of esophagogastroduodenoscopy (EGD) H/O colonoscopy Family History Family History Father No problems noted. Mother No problems noted. Social History Social History Patient Tobacco Use Status: Never used Tobacco Advance Directives: No Advance Directives Information Provided: No Do you have a plan to hurt others: No Plan Physical Exam ED Vital Signs: Vital Signs - 24 hr 12/14/23 14:02 12/14/23 15:44 12/14/23 15:45 Temperature 98.2 F 98.2 F 98.1 F Pulse Rate 105 H 105 H 83 Respiratory Rate 18 18 16 Blood Pressure 133/81 133/81 133/78 Pulse Oximetry 100 100 96 Oxygen Delivery Method Room Air Room Air Room Air BMI result Body Mass Index 27.1 Const General: cooperative Nutritional Appearance: average body habitus Orientation/consciousness: patient oriented x3 HENMT Head: Yes normal to inspection General nose exam: Normal external nose present Throat: Yes posterior oropharynx normal Cardio Rate: regular rate GI Inspection: Yes normal to inspection and No distended Palpation (GI): Soft to palpation, not firm, nontender and no guarding Skin General skin exam: no rashes or lesions noted Lesions: no lesions Rashes: no rashes Neuro General: patient oriented x3 Cranial nerves: Yes CN's II-XII intact bilaterally Cognition (Neuro): normal cognition Course Reevaluation(s) Reevaluation #1: SEEN BY dR HERRERA Time: 14:50 Reevaluation #2: SIGNED OUT TO dR Garrido Medical Decision Making Medical Decision Making [facility] Narrative: Patient presented with complaint of abdominal pain will obtain imaging/labs Differential Diagnosis Differential Diagnoses: The differential diagnosis associated with the presentation includes Differential diagnosis is broad included colitis diverticulitis small-bowel obstruction portal hypertension Lab Data [facility] Lab Attestation statement: I reviewed the patient's lab results. 12/14/23 14:26 12/14/23 14:26 Labs: Lab Results 12/14/23 Range/Units 14:26 WBC 6.9 (4.8-10.8) X10*3/uL RBC 5.08 (4.60-5.80) X10*6/uL Hgb 14.1 (14.0-18.0) g/dl Hct 42.4 (42.0-52.0) % MCV 83.5 (80.0-98.0) fL MCH 27.8 (27.0-33.0) pg MCHC 33.3 (31.0-36.0) g/dl RDW 13.4 (11.0-16.0) % Plt Count 229 (160-400) X10*3/uL MPV 9.5 (9.4-12.4) fL Immature Gran % (Auto) 0.6 H (0.0-0.4) % Neut % (Auto) 68.0 (45-73) % Lymph % (Auto) 18.1 L (20-40) % [place] % (Auto) 10.7 (2-11) % Eos % (Auto) 2.2 (0-4) % Baso % (Auto) 0.4 (0-2) % Lymph # (Auto) 1.3 (1.2-4.9) X10*3/uL [place] # (Auto) 0.7 (0.1-1.2) X10*3/uL Eos # (Auto) 0.2 (0.0-0.4) X10*3/uL Baso # (Auto) 0.0 (0.0-0.2) X10*3/uL Abs Immat Gran (auto) 0.04 H (0.00-0.03) X10*3/uL Absolute Neuts (auto) 4.7 (2.0-8.3) x10*3/uL Absolute Nucleated RBC 0.000 (0.0-0.012) X10*3/uL Nucleated RBC % (auto) 0.0 (0.0-0.2) /100WBC ESR 37 H (0-15) MM/HR Sodium 141 (135-145) mmol/L Potassium 4.3 (3.3-5.1) mmol/L Chloride 105 (96-108) mmol/L Carbon Dioxide 26 (22-29) mmol/L Anion Gap 14 (12-20) BUN 16 (9-16) mg/dL Creatinine 0.87 (0.5-1.4) mg/dL Estim Creat Clear Calc 90.2 Estimated GFR > 60 Random Glucose 97 (60-115) mg/dL Calcium 10.2 (8.4-10.2) mg/dL Total Bilirubin 0.6 (0.0-1.0) mg/dL AST 13 (5-37) U/L ALT 16 (0-40) U/L Alkaline Phosphatase 113 (39-117) U/L C-Reactive Protein 6.79 H (< or = 0.50) mg/dL Total Protein 7.2 (6.5-8.0) g/dL Albumin 4.1 (3.5-5.0) g/dL Lipase 30 (8-78) U/L Medications Administered Discontinued Medications Generic Name Dose Route Start Last Admin Trade Name Freq PRN Reason Stop Dose Admin Lactated Ringer's 1,000 mls @ 999 mls/hr 12/14/23 14:45 12/14/23 14:45 Lr IV 12/14/23 15:45 999 mls/hr .Q1H1M JOSE Administration Iohexol 100 ml 12/14/23 15:06 12/14/23 15:06 Iohexol 350 Mg/Ml 100 Ml Infus..Btl IV 12/14/23 15:07 100 ml ONCE ONE Administration Discharge Plan Discharge Clinical Impression: Abdominal pain Patient Disposition: Still a Patient Prescriptions: No Action irbesartan 150 mg tablet 150 mg PO DAILY 30 Days Qty: 30 11RF oxycodone 5 mg tablet 5 mg PO Q6H PRN (Reason: pain (scale score 7-10)) Qty: 15 0RF Rx Instructions: Partial Fill upon patient request. amoxicillin-pot clavulanate 875-125 mg tablet 1 tab PO BID Qty: 20 0RF ondansetron 4 mg tablet,disintegrating 4 mg PO Q8H PRN (Reason: nausea and vomiting) Qty: 10 0RF Print Language: Thai
[2023-12-14 14:29] LABS: MANUAL DIFF FLAG NO
[2023-12-14 14:40] LABS: Basophils Percent Auto 0.4 % (0-2); Eosinophils Absolute Auto 0.2 X10*3/uL (0.0-0.4); Eosinophils Percent Auto 2.2 % (0-4); Hematocrit 42.4 % (42.0-52.0); Hemoglobin 14.1 g/dl (14.0-18.0); Imm Gran Abs Auto 0.04 X10*3/uL (0.00-0.03); Imm Gran Pct Auto 0.6 % (0.0-0.4); Lymphocytes Absolute Auto 1.3 X10*3/uL (1.2-4.9); Lymphocytes Percent Auto 18.1 % (20-40); Mean Corpuscular HGB Conc 33.3 g/dl (31.0-36.0); Mean Corpuscular Hemoglobin 27.8 pg (27.0-33.0); Mean Corpuscular Volume 83.5 fL (80.0-98.0); Mean Platelet Volume 9.5 fL (9.4-12.4); Monocytes Absolute Auto 0.7 X10*3/uL (0.1-1.2); Monocytes Percent Auto 10.7 % (2-11); Neutrophils Absolute Auto 4.7 x10*3/uL (2.0-8.3); Platelet Count 229 X10*3/uL (160-400); Red Blood Count 5.08 X10*6/uL (4.60-5.80); Red Cell Distribution Width 13.4 % (11.0-16.0); White Blood Count 6.9 X10*3/uL (4.8-10.8)
[2023-12-14] MEDS: Lactated Ringers 1,000 ML 999 ML IV (14:45)
[2023-12-14 14:57] LABS: Alanine Aminotransferase 16 U/L (0-40); Albumin Level 4.1 g/dL (3.5-5.0); Alkaline Phosphatase 113 U/L (39-117); Anion Gap 14 (12-20); Aspartate Amino Transferase 13 U/L (5-37); Bilirubin Total 0.6 mg/dL (0.0-1.0); Blood Urea Nitrogen 16 mg/dL (9-16); Calcium 10.2 mg/dL (8.4-10.2); Carbon Dioxide 26 mmol/L (22-29); Chloride 105 mmol/L (96-108); Creatinine Clr Calc Pharmacy 90.2; Estimated Glomerular Filt Rate > 60; Glucose Random 97 mg/dL (60-115); Lipase 30 U/L (8-78); Potassium 4.3 mmol/L (3.3-5.1); Sodium 141 mmol/L (135-145); Total Protein 7.2 g/dL (6.5-8.0)
[2023-12-14] MEDS: iohexoL 350 MG/ML 100 ML INFUS..BTL IV (15:06)
[2023-12-14 15:15] LABS: C Reactive Protein 6.79 mg/dL (< or = 0.50)
[2023-12-14 15:27] LABS: Erythrocyte Sedimentation Rate 37 MM/HR (0-15)
[2023-12-14 15:44] VITALS: BP 133/81; PULSE 105; RESP 18; TEMP 36.8; O2SAT 100
[2023-12-14 15:45] VITALS: BP 133/78; PULSE 83; RESP 16; TEMP 36.7; O2SAT 96
[2023-12-14 17:36] VITALS: BP 134/82; PULSE 88; RESP 16; TEMP 36.8; O2SAT 99
== END 2023-12-14 17:38 | disposition home or self-care (01) ==
PROVIDERS: Emergency Medicine; Emergency Provider Emergency Medicine Emergency Medical Services
DX: R10.9 Unspecified abdominal pain (principal)
CPT/HCPCS: 36415; 74174; 80053; 83690; 85025; 85652; 86140; 96360; 96361; 99284; J7120; Q9967

== ENCOUNTER 2023-12-25 08:44 | Outpatient (AMB) | payer OTHER, SELFPAY ==
--- NOTE | 2023-12-25 08:57 | MHC.OFFVIS ---
Vital Signs 12/25/23 09:03 Height 5 ft 9 in Weight 183 lb 3.266 oz BMI 27.1 Respiration 16 Intake Visit Reasons: fever, diarrhea Intake Note: Patient is seen in office for wound check post right inguinal hernia repair. 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 Armstrong returns having completed his Cipro 500 mg p.o. b.i.d.. He did feel improved while on the medication but after stopping it the diarrhea and abdominal pain seemed to increase once again. He had an appointment to see the infectious disease doctor however when he presented to the office was told she did not want to see the patient and that workup she had been performed by primary care. He is frustrated now because he does not feel well and does not know where to go from here. Overall his inguinal pain is improved but still has 1/10 discomfort. [facility] Medical History PVCs (premature ventricular contractions) (Unknown) Pancreatic cyst Diarrhea Mallet deformity of left middle finger Surgical History H/O right inguinal hernia repair (11/26/23) Hx of inguinal hernia repair History of esophagogastroduodenoscopy (EGD) H/O colonoscopy Family History Father No problems noted. Mother No problems noted. Social History Patient Tobacco Use Status: Never used Tobacco Review of Systems Const All systems reviewed & are unremarkable except as noted in HPI and below Physical Exam Vital Signs: Last Vital Signs Resp 16 12/25/23 09:03 BMI result Body Mass Index 27.1 Const Other: Exam deferred Assessment & Plan Assessment & Plan (1) Enteritis, Yersinia enterocolitica: Code(s): A04.6 - Enteritis due to Yersinia enterocolitica Category: Medical (2) Terminal ileitis: Code(s): K50.00 - Crohn's disease of small intestine without complications Category: Medical Plan Patient with continued symptoms presumably from Yersinia infection. I will change antibiotics to Bactrim DS b.i.d. for 2 weeks. We will also refer patient to [facility]. He will return in approximately 3 weeks follow-up examination. Coding Level of Care Code Global (97942) Diagnoses Enteritis, Yersinia enterocolitica A04.6 Terminal ileitis K50.00
[2023-12-25 09:03] VITALS: RESP 16; BMI 27.1
== END 2023-12-25 09:14 | disposition home or self-care (01) ==
PROVIDERS: Visit Provider Surgery
DX: A04.6 Enteritis due to Yersinia enterocolitica (principal); K50.00 Crohn's disease of small intestine without complications
CPT/HCPCS: 99024

== ENCOUNTER → 2023-12-25 08:44 | Outpatient (BNVA) | payer OTHER, SELFPAY | PROVIDERS: Visit Provider Surgery ==

== ENCOUNTER → 2023-12-31 13:32 | Outpatient (BNVA) | payer OTHER, SELFPAY | PROVIDERS: Visit Provider Internal Medicine ==

== ENCOUNTER 2024-01-03 11:03 | Inpatient (IN) | payer OTHER, SELFPAY ==
[2024-01-03] VITALS (11 sets, daily range): BP systolic 119–144; BP diastolic 70–91; PULSE 60–88; RESP 16–20; TEMP 36.6–37.1; O2SAT 96–100; BMI 27.5; BMI 30.7
--- NOTE | ~2024-01-03 | US_ITS ---
EXAMINATION: US TRIPLEX LOWER EXTREMITY, BILATERAL CLINICAL INFORMATION: Pain and swelling. Recent travel. COMPARISON: None available. TECHNIQUE: Color-flow triplex imaging with spectral analysis and compression Doppler were performed on the bilateral lower extremities. FINDINGS: Respiratory variation, normal compression and augmented flow are noted throughout the bilateral lower extremities. The visualized common femoral vein, superficial femoral vein, profunda femoral vein, popliteal vein and midcalf peroneal and posterior tibial venous segments show no evidence of deep venous thrombosis bilaterally. There is no Schroeder's cyst. US/US venous duplex LE BI IMPRESSION: No evidence of deep venous thrombosis involving the bilateral lower extremities. Electronically signed by: Dennis Laguerre MD 01/03/2024 03:20 PM EDT
--- NOTE | 2024-01-03 11:08 | ED.NAVMDI ---
HPI - Nausea/Vomiting/Diarrhea General Chief complaint: Nausea/Vomiting/Diarrhea Stated complaint: [id number] Time Seen by Provider: 01/03/24 11:31 Source: patient and old records reviewed Mode of arrival: ambulatory Limitations: no limitations History of Present Illness ED Provider: DYAN OWENS Narrative: 58 yo male with PMH of HTN, PVCs, s/p R inguinal hernia repair on 11/[address] Colvin recent travel history resulting in GI illness found to have terminal ileitis on CT scan 12/13 from ER was prescribed augmentin and flagy but ended up taking a total of 21 days of antibiotics between cipro and bactrim with last dose on Sunday. He comes in after having return of diarrhea that is at minimum 6+ a day that is just water with a lot of flatulence. He then took pepto last night and felt a weird sensation in his chest he became profoundly dizzy with the room spinning and n/v to the point he almost called 911. His symptoms of dizziness started around 6pm. He felt a little better this AM but tried to work and he feels dizzy and like he cannot walk correctly. He has no cp/sob, he is cold and overall weak. MD elicited complaint: diarrhea and other (dizziness) Pertinent past history: other (recent yersinia infection) Onset (ago): day(s) (worsening of symptoms last night) Description of vomiting: food contents Description of diarrhea: watery Associated nausea: Yes Associated abdominal pain: No Location of pain: none Severity: moderate Exacerbating factors: eating, bowel movement and movement Relieving factors: none Context: other Associated symptoms: loss of appetite, malaise, weakness, bloating and other (dizziness) Treatment prior to arrival: immodium Related Data Previous Rx's ?Medication ?Instructions ?Recorded irbesartan 150 mg tablet 150 mg PO DAILY 30 days #30 tabs 05/03/22 ondansetron 4 mg disintegrating 4 mg PO Q8H PRN nausea and 11/09/23 tablet vomiting #10 tabs oxycodone 5 mg tablet 5 mg PO Q6H PRN pain (scale score 12/03/23 7-10) #15 tabs amoxicillin 875 mg-potassium 1 tab PO BID #20 tabs 12/14/23 clavulanate 125 mg tablet metronidazole 500 mg tablet 500 mg PO TID 10 days #30 tabs 12/14/23 ciprofloxacin HCl 500 mg tablet 500 mg PO Q12H 10 days #20 tabs 12/15/23 (Cipro) sulfamethoxazole 800 1 tab PO Q12H #30 tabs 12/25/23 mg-trimethoprim 160 mg tablet (Bactrim DS) Allergies Allergy/AdvReac Type Severity Reaction Status Date / Time Tetanus Vaccines and Toxoid AdvReac Rash Verified 01/03/24 11:12 Review of Systems Review of Systems: Constitutional : No Fever, No Chills, pos Fatigue ENT/Mouth : No sore throat, No Rhinorrhea Eyes: No Eye Pain, No Swelling, No Redness Cardiovascular : No Chest Pain, No SOB, No Dyspnea on Exertion Respiratory : No Cough, No Sputum Gastrointestinal : pos Nausea, No Vomiting, pos Diarrhea, No abdominal Pain Genitourinary : No Dysuria, No Urinary Frequency, No Hematuria, Musculoskeletal : No joint pain, No Myalgias, No Joint Swelling Skin : No Skin Lesions, No rash Neuro : No Weakness, No Numbness, pos Dizziness, no Headache Psych : No Anxiety/Panic, No Depression All other systems reviewed and are negative Gastrointestinal: Gastrointestinal: Reports nausea PMFSH Past Medical History Attestation statement: The following information was validated with the patient. Source: old records reviewed Medical History PVCs (premature ventricular contractions) (Unknown) Pancreatic cyst Diarrhea Mallet deformity of left middle finger Surgical History H/O right inguinal hernia repair (11/26/23) Hx of inguinal hernia repair History of esophagogastroduodenoscopy (EGD) H/O colonoscopy Family History Family History Father No problems noted. Mother No problems noted. Social History Social History Patient Tobacco Use Status: Never used Tobacco Advance Directives: No Advance Directives Information Provided: No Do you have a plan to hurt others: No Plan Physical Exam Vital Signs: Vital Signs: Last Vital Signs Temp 97.9 F 01/03/24 14:09 Pulse 71 01/03/24 14:09 Resp 16 01/03/24 14:09 BP 144/82 H 01/03/24 14:09 Pulse Ox 100 01/03/24 14:09 O2 Del Method Room Air 01/03/24 14:09 BMI result Body Mass Index 27.5 Appearance: Alert. Oriented X3. No acute distress. Eyes: Pupils equal, round and reactive to light. no nystagmus ENT: Pharynx dry MM. Neck: Normal inspection. Neck supple. CVS: Normal heart rate and rhythm. Pulses normal. Respiratory: No respiratory distress. Breath sounds normal. Abdomen: Soft and nontender. Skin: Skin warm and dry. pale skin color. Normal skin turgor. Extremities: left leg there is trace pitting edema and it is larger than R leg Neuro: Oriented X 3. No motor deficit. No sensory deficit. no ataxia while walking, no past pointing on fingers, no drift on testing Course Course Course Narrative: This is a Rapid Medical Examination (RME) performed by Licha Wick PA-C in triage. Full HPI, ROS, assessment and treatment plan per primary provider in the Main ED. 58 y/o male with history of yersinia enterocolitica who stopped abx 12/30 per ID recs, HTN, hx hernia repair, hx UTI, who presents to the ER for evaluation of ongoing diarrhea, weakness and dizziness. Has had 4-5 episodes of very loose stools since last night, non-bloody. No abdominal pain or fever, chills. Reports room spinning sensation that started yesterday with episode of vomiting, unsteady gait today with worsening weakness. VSS in triage. Plan: labs, EKG, orthostatics Medications Administered Discontinued Medications Generic Name Dose Route Start Last Admin Trade Name Freq PRN Reason Stop Dose Admin Lactated Ringer's 1,000 mls @ 999 mls/hr 01/03/24 11:49 01/03/24 12:03 Lr IV 01/03/24 12:49 999 mls/hr .Q1H1M ONE Administration Medical Decision Making Medical Decision Making MDM Narrative: 58 yo male with PMH of HTN, PVCs, s/p R inguinal hernia and recent yersinia infection s/p 21 days of antibiotic therapy who presents with c/o dizziness and nausea long with persistent diarrhea at this time orthostatic VS, IVF x 1L, his left leg > R leg and recent travel DVT studies ordered, no CP to suggest ACS, has no ataxia, past pointing or drift on exam so posterior stroke seems unlikely. Given his abx use would benefit from cdiff study Differential Diagnosis Differential Diagnoses: The differential diagnosis associated with the presentation includes VTE, dehydration, lyte abnormality, anemia, cdiff no plus symptoms to suggest stroke Admission/Observation Consideration of admission/observation: Escalation of care including admission/observation considered feels too weak to go home, at this time will admit for IVF and start on oral vancomycin Consult Healthcare Provider Management of the patient was discussed with: Hospitalist (will admit) Lab Data [facility] Lab Attestation statement: I reviewed the patient's lab results. 01/03/24 11:28 01/03/24 11:28 Labs: Lab Results 01/03/24 01/03/24 Range/Units 11:28 13:27 WBC 3.6 L (4.8-10.8) X10*3/uL RBC 4.66 (4.60-5.80) X10*6/uL Hgb 13.0 L (14.0-18.0) g/dl Hct 39.5 L (42.0-52.0) % MCV 84.8 (80.0-98.0) fL MCH 27.9 (27.0-33.0) pg MCHC 32.9 (31.0-36.0) g/dl RDW 14.4 (11.0-16.0) % Plt Count 186 (160-400) X10*3/uL MPV 9.7 (9.4-12.4) fL Immature Gran % (Auto) 0.3 (0.0-0.4) % Neut % (Auto) 55.5 (45-73) % Lymph % (Auto) 33.8 (20-40) % [place] % (Auto) 7.7 (2-11) % Eos % (Auto) 2.2 (0-4) % Baso % (Auto) 0.5 (0-2) % Lymph # (Auto) 1.2 (1.2-4.9) X10*3/uL [place] # (Auto) 0.3 (0.1-1.2) X10*3/uL Eos # (Auto) 0.1 (0.0-0.4) X10*3/uL Baso # (Auto) 0.0 (0.0-0.2) X10*3/uL Abs Immat Gran (auto) 0.01 (0.00-0.03) X10*3/uL Absolute Neuts (auto) 2.0 (2.0-8.3) x10*3/uL Absolute Nucleated RBC 0.000 (0.0-0.012) X10*3/uL Nucleated RBC % (auto) 0.0 (0.0-0.2) /100WBC Sodium 140 (135-145) mmol/L Potassium 4.2 (3.3-5.1) mmol/L Chloride 108 (96-108) mmol/L Carbon Dioxide 28 (22-29) mmol/L Anion Gap 8 L (12-20) BUN 17 H (9-16) mg/dL Creatinine 0.86 (0.5-1.4) mg/dL Estim Creat Clear Calc 91.3 Estimated GFR > 60 Random Glucose 99 (60-115) mg/dL Calcium 9.2 D (8.4-10.2) mg/dL Magnesium 2.0 (1.6-2.6) mg/dL Total Bilirubin 0.7 (0.0-1.0) mg/dL Direct Bilirubin 0.1 (0.0-0.5) mg/dL AST 19 (5-37) U/L ALT 45 H (0-40) U/L Alkaline Phosphatase 94 (39-117) U/L Troponin I High Sens 6.6 (<3.5-35.0) ng/L Total Protein 6.7 (6.5-8.0) g/dL Albumin 4.1 (3.5-5.0) g/dL Urine Color Yellow Urine Appearance Clear Urine pH 6.0 (5.0-9.0) Ur Specific [place] <= 1.005 (1.005-1.025) Urine Protein Negative (Neg-Trace) mg/dL Urine Glucose (UA) Negative (Negative) mg/dL Urine Ketones Negative (Negative) mg/dL Urine Blood Negative (Negative) Urine Nitrite Negative (Negative) Ur Leukocyte Esterase Negative (Negative) C. difficile Tox B Gene POSITIVE A* (Negative) Independent Interpretation I performed an independent interpretation of an: EKG and Ultrasound (no DVT) Interpretation: Rate: 64 Rhythm: NSR [place]: normal Normal P waves. Normal MARCOS. Normal QRS complex. ST T wave : normal no ALLIE qTC: 431 prior studies: no acute ischemia The study has been interpreted contemporaneously by me. . Radiology Impression Discussion of test interpretation with radiology: I have reviewed the radiologist's reading. External Record Review External record reviewed: Inpatient record and Outpatient record Discharge Plan Discharge Clinical Impression: Weakness with dizziness, C. difficile diarrhea Patient Disposition: Admitted As Inpatient Prescriptions: No Action irbesartan 150 mg tablet 150 mg PO DAILY 30 Days Qty: 30 11RF oxycodone 5 mg tablet 5 mg PO Q6H PRN (Reason: pain (scale score 7-10)) Qty: 15 0RF Rx Instructions: Partial Fill upon patient request. amoxicillin-pot clavulanate 875-125 mg tablet 1 tab PO BID Qty: 20 0RF ciprofloxacin HCl [Cipro] 500 mg tablet 500 mg PO Q12H 10 Days Qty: 20 1RF sulfamethoxazole-trimethoprim [Bactrim DS] 800-160 mg tablet 1 tab PO Q12H Qty: 30 0RF metronidazole 500 mg tablet 500 mg PO TID 10 Days Qty: 30 0RF ondansetron 4 mg tablet,disintegrating 4 mg PO Q8H PRN (Reason: nausea and vomiting) Qty: 10 0RF Print Language: Montenegrin
--- NOTE | 2024-01-03 11:12 | ECG_ITS ---
Test Reason : WEAKNESS Blood Pressure : / mmHG Vent. Rate : 064 BPM Atrial Rate : 064 BPM P-R Int : 184 ms QRS Dur : 088 ms QT Int : 418 ms P-R-T Axes : 016 008 040 degrees QTc Int : 431 ms Normal sinus rhythm Normal ECG No previous ECGs available Referred By: Shahla Wick Electronically Signed By:MIGUEL ANGEL SILVEIRA
[2024-01-03 11:34] LABS: MANUAL DIFF FLAG NO
[2024-01-03 11:36] LABS: Basophils Percent Auto 0.5 % (0-2); Eosinophils Absolute Auto 0.1 X10*3/uL (0.0-0.4); Eosinophils Percent Auto 2.2 % (0-4); Hematocrit 39.5 % (42.0-52.0); Imm Gran Abs Auto 0.01 X10*3/uL (0.00-0.03); Imm Gran Pct Auto 0.3 % (0.0-0.4); Lymphocytes Absolute Auto 1.2 X10*3/uL (1.2-4.9); Lymphocytes Percent Auto 33.8 % (20-40); Mean Corpuscular HGB Conc 32.9 g/dl (31.0-36.0); Mean Corpuscular Hemoglobin 27.9 pg (27.0-33.0); Mean Corpuscular Volume 84.8 fL (80.0-98.0); Mean Platelet Volume 9.7 fL (9.4-12.4); Monocytes Absolute Auto 0.3 X10*3/uL (0.1-1.2); Monocytes Percent Auto 7.7 % (2-11); Neutrophils Percent Auto 55.5 % (45-73); Platelet Count 186 X10*3/uL (160-400); Red Blood Count 4.66 X10*6/uL (4.60-5.80); Red Cell Distribution Width 14.4 % (11.0-16.0); White Blood Count 3.6 X10*3/uL (4.8-10.8)
[2024-01-03 11:49] LABS: Alanine Aminotransferase 45 U/L (0-40); Albumin Level 4.1 g/dL (3.5-5.0); Alkaline Phosphatase 94 U/L (39-117); Anion Gap 8 (12-20); Aspartate Amino Transferase 19 U/L (5-37); Bilirubin Direct 0.1 mg/dL (0.0-0.5); Bilirubin Total 0.7 mg/dL (0.0-1.0); Blood Urea Nitrogen 17 mg/dL (9-16); Calcium 9.2 mg/dL (8.4-10.2); Carbon Dioxide 28 mmol/L (22-29); Chloride 108 mmol/L (96-108); Creatinine Clr Calc Pharmacy 91.3; Estimated Glomerular Filt Rate > 60; Glucose Random 99 mg/dL (60-115); Potassium 4.2 mmol/L (3.3-5.1); Sodium 140 mmol/L (135-145); Total Protein 6.7 g/dL (6.5-8.0)
[2024-01-03 11:56] LABS: Troponin-I High Sensitivity 6.6 ng/L (<3.5-35.0)
[2024-01-03] MEDS: Lactated Ringers 1,000 ML 999 ML IV (12:03)
--- NOTE | 2024-01-03 12:30 | PC.NURSE ---
patient reports a couple episodes of feeling the room spinning while laying down. BP 133/75 and pt AAXO4 speaking clear full sentences.
[2024-01-03 13:42] LABS: Appearance Urine Clear; Color Urine Yellow; Glucose Urine UA Negative (Negative); Leukocyte Esterase Urine Negative (Negative); Nitrite Urine Negative (Negative); Specific Gravity - Urine <= 1.005 (1.005-1.025); Urine Blood Negative (Negative); Urine Ketones Negative (Negative); Urine Protein Negative (Neg-Trace)
[2024-01-03 14:50] LABS: CDiff Gene PCR POSITIVE (Negative)
[2024-01-03 15:43] LABS: CDIFF Internal ctrl Dots and bkg OK (V); CDiff Toxin Positive (Negative)
[2024-01-03] MEDS: vancomycin HCL 125 MG CAPSULE PO ×2 (15:51→20:39)
[2024-01-03] MEDS: Lactated Ringers 1,000 ML 80 ML IVCONT (16:08)
--- NOTE | 2024-01-03 16:50 | PHA.MEDREC ---
Addendum entered by Monica Nunez RPh 01/03/24 17:03: Reviewed by [facility] Original Note: Pharmacy Consult ? Medication Reconciliation Pharmacy has completed the medication reconciliation. Confirmed medications with patient. Patient states he stopped taking the Amoxicillin-Potassium 875mg-125mg, Metrondizole 500mg, Ondansentron 4mg and Oxycodone 5mg. He was taking Ciprofloxacin HCL 500, and Sulfamethoxazole 800mg-Trimethoprim 160mg up until this past Saturday 12/30 and states his DrLeandro told him to stop taking them. He confirmed he started taking Melatoin 10mg 1 tab at bedtime as needed for sleep, but states he hasn't taken it in a few days. He also states he is taking Irbesartan 150mg at bedtime, he states he last took it this morning @0200. He states he fills the Irbesartan at [facility] in [place] and looking in claims we had no claims for that med, I called [facility] pharmacy and they confirmed he picked that up last 12/03/33 for a 90 day supply.
--- NOTE | 2024-01-03 17:39 | PM.IMHP ---
History of Present Illness Date of Service: 01/03/24 Attending physician on admission: En Johnson Chief Complaint: dizziness ,diarrhae 58 yo M PMH of HTN, PVCs, s/p R inguinal hernia repair on 11/[address] Colvin recent travel history resulting in GI illness found to have terminal ileitis on CT scan 12/13 from ER was prescribed augmentin and flagyl but ended up taking a total of 21 days of antibiotics between cipro (2weeks)and bactrim( 1 week) with last dose on Sunday. abd pain resolved,from this week started -He comes in after having return of diarrhea that is at minimum 6+ a day that is just water with a lot of flatulence. He then took pepto last night and felt a weird sensation in his chest he became profoundly dizzy with the room spinning and n/v . His symptoms of dizziness started around 6pm. He felt a little better this AM but tried to work and he feels dizzy and like he cannot walk correctly. denies no cp/sob, he is cold and overall weak. Patient was found to have C diff positive-started on p.o. vanco and requested admission for dehydration/C diff diarrhea. Patient denies any recent travel history but had some parasitic infection 1 year ago in his is [place] trip. Review of Systems Review of Systems: As above. Yes all other systems are reviewed and are negative [facility] Medical History PVCs (premature ventricular contractions) (Unknown) Pancreatic cyst Diarrhea Mallet deformity of left middle finger Family History Father No problems noted. Mother No problems noted. Surgical History H/O right inguinal hernia repair (11/26/23) Hx of inguinal hernia repair History of esophagogastroduodenoscopy (EGD) H/O colonoscopy Social History Patient Tobacco Use Status: Never used Tobacco Smoked in Last 30 Days: No Use of substances other than those prescribed or required for medical reasons: No Advance Directives: No Advance Directives Information Provided: No Do you have a plan to hurt others: No Plan Meds Allergies Allergy/AdvReac Type Severity Reaction Status Date / Time Tetanus Vaccines and Toxoid AdvReac Rash Verified 01/03/24 11:12 Active Medications: Current Medications Acetaminophen (Acetaminophen 325 Mg Tablet) 650 mg PO Q6H PRN PRN Reason: Pain, Mild (Pain Scale 1-3), fever or headache Calcium Carbonate (Calcium Carbonate 750 Mg Tab.Chew) 750 mg PO Q4H PRN PRN Reason: Heartburn Lactated Ringer's (Lr) 1,000 mls @ 80 mls/hr IVCONT .[id number] JOSE Last Admin: 01/03/24 16:08 Dose: 80 mls/hr Magnesium Hydroxide (Milk Of Magnesia 30 Ml Oral.Susp) 30 ml PO DAILY PRN PRN Reason: Constipation Melatonin (Melatonin 3 Mg Tablet) 6 mg PO BEDTIME PRN PRN Reason: Insomnia Sodium Chloride (0.9 % Sodium Chloride Flush 3 Ml Syringe) 3 ml IVFLUSH QSHIFT [facility] Vancomycin HCl (Vancomycin Hcl 125 Mg Capsule) 125 mg PO QID ONE Stop: 01/03/24 21:01 Home Medications ?Medication ?Instructions ?Recorded ?Confirmed ?Last Taken ?Type irbesartan 150 mg tablet 150 mg PO BEDTIME 01/03/24 01/03/24 01/03/24 02:00 History melatonin 10 mg tablet 10 mg PO BEDTIME PRN Sleep 01/03/24 01/03/24 Unknown History Physical Exam Vital Signs and Narrative: Vital Signs: Last Vital Signs Temp 97.9 F 01/03/24 16:18 Pulse 68 01/03/24 16:18 Resp 18 01/03/24 16:18 BP 137/87 01/03/24 16:18 Pulse Ox 99 01/03/24 16:18 O2 Del Method Room Air 01/03/24 16:18 BMI result Body Mass Index 27.5 Appearance: Alert.? Oriented X3.? cvs: rrr, [id number] , no murmur res: clear to auscultation ,no rhonchii or wheezing abd: no rebound or guarding ,nt, bs present. ext pulses present , no cyanosis. neuro: axo3 , nonfocal,moves allext. Results Labs 01/03/24 11:28 01/03/24 11:28 Labs: Laboratory Results - last 24 hr 01/03/24 01/03/24 11:28 13:27 MCV 84.8 MCH 27.9 MCHC 32.9 RDW 14.4 Plt Count 186 MPV 9.7 Immature Gran % (Auto) 0.3 Neut % (Auto) 55.5 Lymph % (Auto) 33.8 [place] % (Auto) 7.7 Eos % (Auto) 2.2 Baso % (Auto) 0.5 Lymph # (Auto) 1.2 [place] # (Auto) 0.3 Eos # (Auto) 0.1 Baso # (Auto) 0.0 Abs Immat Gran (auto) 0.01 Absolute Neuts (auto) 2.0 Absolute Nucleated RBC 0.000 Nucleated RBC % (auto) 0.0 Anion Gap 8 L Estim Creat Clear Calc 91.3 Estimated GFR > 60 Random Glucose 99 Calcium 9.2 D Magnesium 2.0 Total Bilirubin 0.7 Direct Bilirubin 0.1 AST 19 ALT 45 H Alkaline Phosphatase 94 Troponin I High Sens 6.6 Total Protein 6.7 Albumin 4.1 Urine Color Yellow Urine Appearance Clear Urine pH 6.0 Ur Specific [place] <= 1.005 Urine Protein Negative Urine Glucose (UA) Negative Urine Ketones Negative Urine Blood Negative Urine Nitrite Negative Ur Leukocyte Esterase Negative C. difficile Tox B Gene POSITIVE A* C. difficile Toxin A&B Positive A* C. difficile Interpret SEE NOTE Imaging Radiologist's Impressions: Impressions Venous Duplex 01/03/24 12:38 IMPRESSION: No evidence of deep venous thrombosis involving the bilateral lower extremities. Electronically signed by: Dennis Laguerre MD 01/03/2024 03:20 PM EDT RP Assessment and Plan (1) C. difficile diarrhea: Status: Acute Plan 58 yo M PMH of HTN, PVCs, s/p R inguinal hernia repair on 11/[address] Colvin recent travel history resulting in GI illness found to have terminal ileitis on CT scan 12/13 from ER was prescribed augmentin and flagyl but ended up taking a total of 21 days of antibiotics between cipro (2weeks)and bactrim( 1 week)-came with nausea vomiting, diarrhea as above found to have C diff positive. C diff diarrhea Unable to take p.o. Started on hydration, p.o. vanco, IV hydration Added id evaluation htn : will add htn meds once reconcilled dvt prophylax: ambulation low risk Patient will benefit from 2 midnight stays considering C diff diarrhea and dehydration and unable to take p.o. need IV antibiotic and fluids and id evaluation. Above management discussed with the patient detail length he understand and in agreement with the above plan, time spent 70 minute. Patient full code. Quality Stroke Does the patient have a stroke diagnosis?: No VTE Prior VTE?: No VTE Risk Level:: Medical - moderate - high VTE Device Contraindication: N/A - Device Ordered VTE Drug Contraindication: N/A - Med Ordered
--- NOTE | 2024-01-03 17:39 | PC.NURSE ---
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
[2024-01-03 18:00] LABS: Iron 85 mcg/dL (45-160); Percent Iron Saturation 38 % (15-50); Total Iron Binding Capacity 226 mcg/dL (228-428); Unsaturated Iron Binding 141 ug/dL
--- NOTE | 2024-01-03 18:20 | PC.NURSE ---
patient refused telemetry monitoring for transport. nursing management aware.
[2024-01-03] MEDS: Acetaminophen 325 MG TABLET 650 MG PO (20:38)
[2024-01-03] MEDS: Valsartan 80 MG TABLET PO (20:39)
[2024-01-04 03:49] VITALS: BP 122/70; PULSE 71; RESP 20; TEMP 36.2; O2SAT 96
[2024-01-04] MEDS: Lactated Ringers 1,000 ML 80 ML IVCONT (04:06)
[2024-01-04 06:53] LABS: Hemoglobin 12.8 g/dl (14.0-18.0); Mean Corpuscular HGB Conc 32.8 g/dl (31.0-36.0); Mean Corpuscular Hemoglobin 27.9 pg (27.0-33.0); Mean Platelet Volume 10.3 fL (9.4-12.4); Platelet Count 189 X10*3/uL (160-400); Red Blood Count 4.59 X10*6/uL (4.60-5.80); White Blood Count 4.1 X10*3/uL (4.8-10.8)
[2024-01-04 07:07] LABS: Anion Gap 9 (12-20); Blood Urea Nitrogen 10 mg/dL (9-16); Calcium 9.5 mg/dL (8.4-10.2); Carbon Dioxide 28 mmol/L (22-29); Chloride 109 mmol/L (96-108); Creatinine Clr Calc Pharmacy 93.7; Estimated Glomerular Filt Rate > 60; Glucose Random 101 mg/dL (60-115); Potassium 4.2 mmol/L (3.3-5.1); Sodium 142 mmol/L (135-145)
[2024-01-04 07:40] VITALS: BP 131/82; PULSE 69; RESP 18; TEMP 36.9; O2SAT 98
[2024-01-04] MEDS: vancomycin HCL 125 MG CAPSULE PO (08:04)
--- NOTE | 2024-01-04 08:13 | P.PNIM_ITS ---
Subjective Subjective Date of Service: 01/04/24 Interval History: cdiff Review of Systems diarrhae somewhat Physical Exam 2 Vital Signs: Vital Signs: Last Vital Signs Temp 98.5 F 01/04/24 07:40 Pulse 69 01/04/24 07:40 Resp 18 01/04/24 07:40 BP 131/82 01/04/24 07:40 Pulse Ox 98 01/04/24 07:40 O2 Del Method Room Air 01/04/24 07:40 BMI result Body Mass Index 30.7 Objective Data Active Medications Acetaminophen (Acetaminophen 325 Mg Tablet) 650 mg PO Q6H PRN PRN Reason: Pain, Mild (Pain Scale 1-3), fever or headache Last Admin: 01/03/24 20:38 Dose: 650 mg Documented By: SURENDRA Calcium Carbonate (Calcium Carbonate 750 Mg Tab.Chew) 750 mg PO Q4H PRN PRN Reason: Heartburn Lactated Ringer's (Lr) 1,000 mls @ 80 mls/hr IVCONT .[id number] [facility] Last Admin: 01/04/24 04:06 Dose: 80 mls/hr Documented By: SURENDRA Magnesium Hydroxide (Milk Of Magnesia 30 Ml Oral.Susp) 30 ml PO DAILY PRN PRN Reason: Constipation Melatonin (Melatonin 3 Mg Tablet) 6 mg PO BEDTIME PRN PRN Reason: Insomnia Sodium Chloride (0.9 % Sodium Chloride Flush 3 Ml Syringe) 3 ml IVFLUSH QSHIFT [facility] Last Admin: 01/03/24 23:10 Dose: Not Given Documented By: SURENDRA Non-Admin Reason: IV Running Valsartan (Valsartan 80 Mg Tablet) 80 mg PO BEDTIME [facility] Last Admin: 01/03/24 20:39 Dose: 80 mg Documented By: SURENDRA Vancomycin HCl (Vancomycin Hcl 125 Mg Capsule) 125 mg PO QID [facility] Last Admin: 01/04/24 08:04 Dose: 125 mg Documented By: CHENCHO Labs 01/04/24 05:51 01/04/24 05:51 Labs: Laboratory Results - last 24 hr 01/03/24 01/03/24 01/04/24 11:28 13:27 05:51 MCV 84.8 85.0 MCH 27.9 27.9 MCHC 32.9 32.8 RDW 14.4 14.0 Plt Count 186 189 MPV 9.7 10.3 Immature Gran % (Auto) 0.3 Neut % (Auto) 55.5 Lymph % (Auto) 33.8 [place] % (Auto) 7.7 Eos % (Auto) 2.2 Baso % (Auto) 0.5 Lymph # (Auto) 1.2 [place] # (Auto) 0.3 Eos # (Auto) 0.1 Baso # (Auto) 0.0 Abs Immat Gran (auto) 0.01 Absolute Neuts (auto) 2.0 Absolute Nucleated RBC 0.000 0.000 Nucleated RBC % (auto) 0.0 0.0 Anion Gap 8 L 9 L Estim Creat Clear Calc 91.3 93.7 Estimated GFR > 60 > 60 Random Glucose 99 101 Calcium 9.2 D 9.5 Magnesium 2.0 Iron 85 TIBC 226 L % Saturation 38 Unsat Iron Binding 141 Total Bilirubin 0.7 Direct Bilirubin 0.1 AST 19 ALT 45 H Alkaline Phosphatase 94 Troponin I High Sens 6.6 Total Protein 6.7 Albumin 4.1 Urine Color Yellow Urine Appearance Clear Urine pH 6.0 Ur Specific [place] <= 1.005 Urine Protein Negative Urine Glucose (UA) Negative Urine Ketones Negative Urine Blood Negative Urine Nitrite Negative Ur Leukocyte Esterase Negative C. difficile Tox B Gene POSITIVE A* C. difficile Toxin A&B Positive A* C. difficile Interpret SEE NOTE Quality Stroke Does the patient have a stroke diagnosis?: No VTE Prior VTE?: No VTE Risk Level:: Medical - moderate - high VTE Device Contraindication: N/A - Device Ordered VTE Drug Contraindication: N/A - Med Ordered
--- NOTE | 2024-01-04 09:31 | MHC.CM.PN ---
Pt is independent, lives with , no home health services. He has a new PCP, to see first time Jan 16, in [place], he cannot recall the name. HCP discussed, pt is not sure if he wants to complete one, form and information to be given to him. Pt can arrange transport home at [place]. DCP: home, self care. CM to follow for DC needs.
[2024-01-04] MEDS: Lactated Ringers 1,000 ML 100 ML IVCONT (11:31)
[2024-01-04 11:39] VITALS: BP 131/88; PULSE 71; RESP 18; TEMP 36.9; O2SAT 97
[2024-01-04] MEDS: Fidaxomicin 200 MG TABLET PO (11:51)
--- NOTE | 2024-01-04 12:13 | P.CNID_ITS ---
History of Present Illness Data of Consult Service Date: 01/04/24 Requesting physician: En Johnson Primary Care Provider: Unknown Physician HPI Reason for consult: dehydration,Cdiff diarrhea He presents with dizziness and weakness for a day. He has no fever or chills. He induced vomiting after taking pepto bismol. He has diarrhea,watery and profuse. He has had diarrhea since end November 2-3 times a day and nonbloody,but watery and had stool PCR positive on 12/13 for yersinia enterocolitica He receive two weeks Cipro ,no better and when I had televisit with him on December 30 he had taken Bactrim for a week and felt better with no diarrhea. I told him to go to ER if diarrhea reappeared and was concerned about antibiotic associated colitis now or possible Cdiff. He was back at work and even though felt like he was dizzy and thought about calling ambulance did come to work. 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 He wants to take them now. He also had hernia surgery which healed well. Unfortunately,he has not had PCP ,but now is getting one. His is in [facility] now. Review of Systems 2 Review of Systems: Yes all other systems are reviewed and are negative Constitutional: Constitutional: Reports lethargy Gastrointestinal: Gastrointestinal: Reports diarrhea PMFSH Past Medical History Medical History PVCs (premature ventricular contractions) (Unknown) Pancreatic cyst Diarrhea Mallet deformity of left middle finger Family History Family History Father No problems noted. Mother No problems noted. Family history: reviewed and not pertinent Surgical History Surgical History H/O right inguinal hernia repair (11/26/23) Hx of inguinal hernia repair History of esophagogastroduodenoscopy (EGD) H/O colonoscopy Social History Social History Household Members: Spouse Housing: House Do you presently have visiting nurse or other home services: No Patient Tobacco Use Status: Never used Tobacco e-Cigarette/Vaping Use: Never Used Second Hand Smoke Exposure: No service: No Meds Allergies Allergy/AdvReac Type Severity Reaction Status Date / Time Tetanus Vaccines and Toxoid AdvReac Rash Verified 01/03/24 11:12 Active Medications: Current Medications Acetaminophen (Acetaminophen 325 Mg Tablet) 650 mg PO Q6H PRN PRN Reason: Pain, Mild (Pain Scale 1-3), fever or headache Last Admin: 01/03/24 20:38 Dose: 650 mg Calcium Carbonate (Calcium Carbonate 750 Mg Tab.Chew) 750 mg PO Q4H PRN PRN Reason: Heartburn Fidaxomicin (Fidaxomicin 200 Mg Tablet) 200 mg PO Q12H [facility] Last Admin: 01/04/24 11:51 Dose: 200 mg Lactated Ringer's (Lr) 1,000 mls @ 100 mls/hr IVCONT .Q10H [facility] Last Admin: 01/04/24 11:31 Dose: 100 mls/hr Melatonin (Melatonin 3 Mg Tablet) 6 mg PO BEDTIME PRN PRN Reason: Insomnia Sodium Chloride (0.9 % Sodium Chloride Flush 3 Ml Syringe) 3 ml IVFLUSH QSHIFT [facility] Last Admin: 01/04/24 09:42 Dose: Not Given Valsartan (Valsartan 80 Mg Tablet) 80 mg PO BEDTIME [facility] Last Admin: 01/03/24 20:39 Dose: 80 mg Home Medications ?Medication ?Instructions ?Recorded ?Confirmed ?Last Taken ?Type irbesartan 150 mg tablet 150 mg PO BEDTIME 01/03/24 01/03/24 01/03/24 02:00 History melatonin 10 mg tablet 10 mg PO BEDTIME PRN Sleep 01/03/24 01/03/24 Unknown History Physical Exam 2 Vital Signs: Vital Signs: Last Vital Signs Temp 98.5 F 01/04/24 11:39 Pulse 71 01/04/24 11:39 Resp 18 01/04/24 11:39 BP 131/88 01/04/24 11:39 Pulse Ox 97 01/04/24 11:39 O2 Del Method Room Air 01/04/24 11:39 BMI result Body Mass Index 30.7 Const: General: cooperative HEENT: Head: Yes normal to inspection Face and sinus: Yes normal facial exam Mouth: Normal oral and palatal mucosa present Teeth and gingiva: d entition normal Eyes: General: appearance normal, both eyes and all related structures P upils: Equal, round and reactive pupils present Resp: Effort & Inspection: normal respiratory effort Cardio: Rate: regular rate Rhythm: regular rhythm GI: Palpation (GI): Soft to palpation and nontender : General: Yes no CVA tenderness Back/Spine/Pelvis: Back: no CVA tenderness Skin: General skin exam: no rashes or lesions noted Neuro: General: moves all extremities Cranial nerves: Yes Equal, round and reactive pupils present Extrem: General: Yes normal to inspection Psych: Appearance: grossly normal Results Labs 01/04/24 05:51 01/04/24 05:51 Labs: Short CBC 01/04/24 Range/Units 05:51 WBC 4.1 L (4.8-10.8) X10*3/uL Hgb 12.8 L (14.0-18.0) g/dl Hct 39.0 L (42.0-52.0) % Plt Count 189 (160-400) X10*3/uL BMP 01/04/24 05:51 Sodium 142 Potassium 4.2 Chloride 109 H Carbon Dioxide 28 BUN 10 Creatinine 0.95 Calcium 9.5 Urine 01/03/24 Range/Units 13:27 Urine Color Yellow Urine Appearance Clear Urine pH 6.0 (5.0-9.0) Ur Specific [place] <= 1.005 (1.005-1.025) Urine Protein Negative (Neg-Trace) mg/dL Urine Glucose (UA) Negative (Negative) mg/dL Assessment and Plan (1) C. difficile diarrhea: Status: Acute (2) Weakness with dizziness: Status: Acute (3) Enteritis, Yersinia enterocolitica: Status: Acute (4) Terminal ileitis: Status: Acute (5) Status post inguinal hernia repair, follow-up exam: Status: Acute Plan He has had multiple antibiotics which are risk factor for Cdiff. He has not had Cdiff before. He is interested in fidaxomicin because he has read about it and it is only twice a day. He is on vancomycin now 125 mg qid. He has no signs of severe Cdiff so no IV Flagyl. Would give either fidaxomicin 200 mg bid or po Vancomycin 125 mg qid for 10 days. This has a 20% recurrence Cdiff. He has had yersinia enterocolitica. Every time takes antibiotics take prophylactic po Vancomycin 125 qid for duration antibiotic and then 48 hours after. Do not take antibiotics for yersinia enterocolitica or blastocystis in stool in future,just antidiarrheals unless septic. No bile acid binding agents. Hydration prn need. Bleach to surfaces at home and hand washing.
[2024-01-04 12:18] LABS: Adenovirus PCR Not Detected (Not Detect.); Bordetella parapertussis PCR Not Detected (Not Detect.); Bordetella pertussis PCR Not Detected (Not Detect.); Chlamydia pneumoniae PCR Not Detected (Not Detect.); Coronavirus 229E PCR Not Detected (Not Detect.); Coronavirus HKU1 PCR Not Detected (Not Detect.); Coronavirus NL63 PCR Not Detected (Not Detect.); Coronavirus OC43 PCR Not Detected (Not Detect.); Human metapneumovirus PCR Not Detected (Not Detect.); Influenza A PCR Not Detected (Not Detect.); Influenza B PCR Not Detected (Not Detect.); Mycoplasma pneumoniae PCR Not Detected (Not Detect.); Parainfluenza 1 PCR Not Detected (Not Detect.); Parainfluenza 2 PCR Not Detected (Not Detect.); Parainfluenza 3 PCR Not Detected (Not Detect.); Parainfluenza 4 PCR Not Detected (Not Detect.); RSV PCR Not Detected (Not Detect.); Rhino/Enterovirus PCR Not Detected (Not Detect.)
[2024-01-04 12:52] LABS: SARS-CoV-2 PCR Not Detected (Not Detect.)
--- NOTE | 2024-01-04 13:49 | P.DS_ITS ---
DS: Providers Provider Date of Service: 01/04/24 Date of admission: 01/03/24 16:52 Date of discharge: 01/04/24 Primary care physician: Unknown Physician Consults: 01/04/24 11:12 Consult to Infectious Diseases Routine Consulting Provider: [facility] Reason for consultation: cdiff Has provider been notified: No Attending physician on discharge: En Johnson Discharging clinician: En Johnson DS: Diagnosis Discharge Diagnosis (1) C. difficile diarrhea: Status: Acute (2) Weakness with dizziness: Status: Acute (3) Enteritis, Yersinia enterocolitica: Status: Acute (4) Terminal ileitis: Status: Acute (5) Status post inguinal hernia repair, follow-up exam: Status: Acute DS: Summary Hospital Course Hospital Course: 58 yo M PMH of HTN, PVCs, s/p R inguinal hernia repair on 11/[address] Colvin recent travel history resulting in GI illness found to have terminal ileitis on CT scan 12/13 from ER was prescribed augmentin and flagyl but ended up taking a total of 21 days of antibiotics between cipro (2weeks)and bactrim( 1 week) with last dose on Sunday. abd pain resolved,from this week started -He comes in after having return of diarrhea that is at minimum 6+ a day that is just water with a lot of flatulence. He then took pepto last night and felt a weird sensation in his chest he became profoundly dizzy with the room spinning and n/v . His symptoms of dizziness started around 6pm. He felt a little better this AM but tried to work and he feels dizzy and like he cannot walk correctly. denies no cp/sob, he is cold and overall weak. Patient was found to have C diff positive-started on p.o. vanco and requested admission for dehydration/C diff diarrhea. Patient denies any recent travel history but had some parasitic infection 1 year ago in his is [facility] trip. Hospital course: Patient was admitted because of diarrhea nausea vomiting and dizziness: Patient had recent prolonged course of antibiotics, found to have C diff positive, has mild leukopenia, no fever. Patient was started on IV hydration and p.o. vancomycin: Patient's symptoms seems to be improved significantly no nausea vomiting, dizziness improved, tolerating diet, diarrhea is also improving. Seen by infectious disease recommended fidaxomicin 200 mg p.o. b.i.d. for 10 days. Plan: Completedaxomicin 200 mg p.o. b.i.d. for 10 days. Monitor CBC outpatient. Encouraged for hydration and p.o. intake. Above management discussed with the patient detail length he understand agreement with the above plan, time spent Time Attestation Total time managing care of this patient today: 40 mintues. Discharge Coordination Time (in mins): 40 min Quality: Safe Use of Opioids Does Pt have an Active Cancer Diagnosis on the Problem List?: No Quality: Stroke Does the patient have a stroke diagnosis?: No Physical Exam Vital Signs: Vital Signs: Last Vital Signs Temp 98.5 F 01/04/24 11:39 Pulse 71 01/04/24 11:39 Resp 18 01/04/24 11:39 BP 131/88 01/04/24 11:39 Pulse Ox 97 01/04/24 11:39 O2 Del Method Room Air 01/04/24 11:39 BMI result Body Mass Index 30.7 Appearance: Alert.? Oriented X3.? cvs: rrr, [id number] , no murmur res: clear to auscultation ,no rhonchii or wheezing abd: no rebound or guarding ,nt, bs present. ext pulses present , no cyanosis. neuro: axo3 , nonfocal,moves allext. DS: Data Data Completed and Pending Labs on day of discharge: Laboratory Results - last 24 hr 01/03/24 01/03/24 01/03/24 11:28 13:27 18:09 WBC RBC Hgb Hct MCV MCH MCHC RDW Plt Count MPV Absolute Nucleated RBC Nucleated RBC % (auto) Sodium Potassium Chloride Carbon Dioxide Anion Gap BUN Creatinine Estim Creat Clear Calc Estimated GFR Random Glucose Calcium Iron 85 TIBC 226 L % Saturation 38 Unsat Iron Binding 141 Respiratory Panel Barrios See Note Adenovirus (Rapid PCR) Not Detected B.pert (TEM-PCR) Not Detected B.parapertussis DNA PCR Not Detected C. pneumoniae DNA (PCR) Not Detected C. difficile Tox B Gene POSITIVE A* C. difficile Toxin A&B Positive A* C. difficile Interpret SEE NOTE Coronavirus OC43 (PCR) Not Detected Coronavirus HKU1 (PCR) Not Detected Coronavirus 229E (PCR) Not Detected Coronavirus NL63 (PCR) Not Detected Human Metapneumovir PCR Not Detected Influenza A (RT-PCR) Not Detected Influenza B (RT-PCR) Not Detected M. pneumoniae (PCR) Not Detected Parainfluenza 1 (PCR) Not Detected Parainfluenza 2 (PCR) Not Detected Parainfluenza 3 (PCR) Not Detected Parainfluenza 4 (PCR) Not Detected RSV (PCR) Not Detected Entero/Rhino (PCR) Not Detected SARS-CoV-2 RNA (RT-PCR) Not Detected 01/04/24 05:51 WBC 4.1 L RBC 4.59 L Hgb 12.8 L Hct 39.0 L MCV 85.0 MCH 27.9 MCHC 32.8 RDW 14.0 Plt Count 189 MPV 10.3 Absolute Nucleated RBC 0.000 Nucleated RBC % (auto) 0.0 Sodium 142 Potassium 4.2 Chloride 109 H Carbon Dioxide 28 Anion Gap 9 L BUN 10 Creatinine 0.95 Estim Creat Clear Calc 93.7 Estimated GFR > 60 Random Glucose 101 Calcium 9.5 Iron TIBC % Saturation Unsat Iron Binding Respiratory Panel Barrios Adenovirus (Rapid PCR) B.pert (TEM-PCR) B.parapertussis DNA PCR C. pneumoniae DNA (PCR) C. difficile Tox B Gene C. difficile Toxin A&B C. difficile Interpret Coronavirus OC43 (PCR) Coronavirus HKU1 (PCR) Coronavirus 229E (PCR) Coronavirus NL63 (PCR) Human Metapneumovir PCR Influenza A (RT-PCR) Influenza B (RT-PCR) M. pneumoniae (PCR) Parainfluenza 1 (PCR) Parainfluenza 2 (PCR) Parainfluenza 3 (PCR) Parainfluenza 4 (PCR) RSV (PCR) Entero/Rhino (PCR) SARS-CoV-2 RNA (RT-PCR) Imaging Chest x-ray: Radiologist's impression: ITS Impressions Venous Duplex 01/03/24 12:38 IMPRESSION: No evidence of deep venous thrombosis involving the bilateral lower extremities. Electronically signed by: Dennis Laguerre MD 01/03/2024 03:20 PM EDT Discharge Plan Discharge Anticipated Discharge Date/Time: 01/04/24 13:45 Patient Disposition: Home, Self-Care Discharge Diagnosis: c diff diarrhae Referrals: Physician,Unknown J [Primary Care Provider] - 1 Week Discharge Medications: New Dificid 200 mg Tablet 200 mg PO Q12H Qty: 20 0RF Continued melatonin 10 mg Tablet 10 mg PO BEDTIME PRN (Reason: Sleep) irbesartan 150 mg tablet 150 mg PO BEDTIME Discharge Orders: Discharge Order (Routine); Ordered 01/04/24 Ordered By: En Johnson Diet: Advance to usual diet Activity on Discharge: As tolerated Stand Alone Forms: Patient Portal Discharge page Print Language: Stateless Care Plan Goals: C diff diarrhea: Symptoms are improving, tolerating diet. Discussed with infectious disease patient will go home fidaxomicin 200 mg p.o. b.i.d. for 10 days. Health Concerns: As above-if new symptoms abdominal pain or diarrhea worsening or fever-please go to the nearest emergency room. Plan of Treatment: As above. Assessment: As above.
[2024-01-04 15:54] VITALS: BP 136/91; PULSE 68; RESP 19; TEMP 36.9; O2SAT 99
== END 2024-01-04 18:15 | disposition home or self-care (01) | DRG 248 ==
LOC: HO.ED 15:41 → HO.EDOVER 17:00 → HO.IMC 17:14
PROVIDERS: Physician Assistant; Admitting Provider Internal Medicine; Emergency Provider Emergency Medicine; Visit Provider Internal Medicine
DX: A04.72 Enterocolitis due to Clostridium difficile, not specified as recurrent (principal); E86.0 Dehydration; I10 Essential (primary) hypertension; Z20.822 Contact with and (suspected) exposure to COVID-19; Z79.899 Other long term (current) drug therapy
CPT/HCPCS: 36415; 80048; 80076; 81003; 83540; 83735; 84484; 85025; 85027; 87324; 87493; 87633; 93005; 93970; 99285; J7120

== ENCOUNTER → 2024-01-03 16:52 | Outpatient (BNV) | payer OTHER, SELFPAY | PROVIDERS: Admitting Provider Internal Medicine; Emergency Provider Emergency Medicine; Visit Provider Internal Medicine | DX: A04.72 Enterocolitis due to Clostridium difficile, not specified as recurrent (principal) | CPT/HCPCS: 99222; 99239 ==

== ENCOUNTER → 2024-01-03 16:52 | Outpatient (BNV) | payer OTHER, SELFPAY | PROVIDERS: Admitting Provider Internal Medicine; Emergency Provider Emergency Medicine; Visit Provider Internal Medicine | DX: A04.72 Enterocolitis due to Clostridium difficile, not specified as recurrent (principal); R53.1 Weakness; R42 Dizziness and giddiness; A04.6 Enteritis due to Yersinia enterocolitica; K50.00 Crohn's disease of small intestine without complications; Z09 Encounter for follow-up examination after completed treatment for conditions other than malignant neoplasm | CPT/HCPCS: 99222 ==

== ENCOUNTER → 2024-01-04 12:32 | Outpatient (BNVA) | payer OTHER, SELFPAY | PROVIDERS: Visit Provider Internal Medicine ==

== ENCOUNTER 2024-01-10 11:39 | Outpatient (AMB) | payer OTHER, SELFPAY ==
--- NOTE | 2024-01-10 11:42 | MHC.OFFVIS ---
Vital Signs 01/10/24 11:48 Height 5 ft 9 in Weight 208 lb 1.862 oz BMI 30.7 Pulse 66 Intake Visit Reasons: 2 week follow up fever, diarrhea Intake Note: Patient is seen in office for wound check post right inguinal hernia repair. 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 diff. He is currently on Dificid after developing inner ear changes with po Vanco. He denies any on going right inguinal symptoms at this time. [facility] Medical History PVCs (premature ventricular contractions) (Unknown) Pancreatic cyst Diarrhea Mallet deformity of left middle finger Surgical History H/O right inguinal hernia repair (11/26/23) Hx of inguinal hernia repair History of esophagogastroduodenoscopy (EGD) H/O colonoscopy Family History Father No problems noted. Mother No problems noted. Social History Household Members: Spouse Housing: House Do you presently have visiting nurse or other home services: No Comment: pt refused bed alarm. Patient Tobacco Use Status: Never used Tobacco e-Cigarette/Vaping Use: Never Used Second Hand Smoke Exposure: No service: No Physical Exam Const General: no acute distress Nutritional Appearance: well nourished Orientation/consciousness: patient oriented x3 Limitations: no limitations Resp Effort & Inspection: normal respiratory effort GI Other: Right inguinal hernia incision is clean and intact. No hernia noted with Valsalva maneuvers. No ecchymosis or hematoma. Testes are descended. Inspection: Yes normal to inspection Skin Other: warm, dry, no rash Neuro General: patient oriented x3 Assessment & Plan Assessment & Plan (1) Reducible right inguinal hernia: Code(s): K40.90 - Unilateral inguinal hernia, without obstruction or gangrene, not specified as recurrent Category: Medical Plan S/p repair of right inguinal hernia repair. He developed a enteritis and then subsequent C.diff colitis and is currently responding to treatment. Hernia wounds are clean and intact without evidence of infection or hernia recurrence. He may resume normal activities and should follow up as needed. Coding Level of Care Code Global (93700) Diagnoses Reducible right inguinal hernia K40.90
[2024-01-10 11:48] VITALS: PULSE 66; BMI 30.7
== END 2024-01-10 11:53 | disposition home or self-care (01) ==
PROVIDERS: Visit Provider Surgery
DX: K40.90 Unilateral inguinal hernia, without obstruction or gangrene, not specified as recurrent (principal)
CPT/HCPCS: 99024

== ENCOUNTER → 2024-01-10 11:39 | Outpatient (BNVA) | payer OTHER, SELFPAY | PROVIDERS: Visit Provider Surgery ==

== ENCOUNTER 2024-01-16 11:38 | Outpatient (REF) | payer OTHER, SELFPAY ==
[2024-01-16 12:03] LABS: MANUAL DIFF FLAG NO
[2024-01-16 12:48] LABS: Basophils Percent Auto 0.8 % (0-2); Eosinophils Absolute Auto 0.1 X10*3/uL (0.0-0.4); Eosinophils Percent Auto 2.3 % (0-4); Hematocrit 41.7 % (42.0-52.0); Hemoglobin 13.8 g/dl (14.0-18.0); Imm Gran Abs Auto 0.01 X10*3/uL (0.00-0.03); Imm Gran Pct Auto 0.2 % (0.0-0.4); Lymphocytes Absolute Auto 1.9 X10*3/uL (1.2-4.9); Lymphocytes Percent Auto 39.2 % (20-40); Mean Corpuscular HGB Conc 33.1 g/dl (31.0-36.0); Mean Corpuscular Hemoglobin 28.4 pg (27.0-33.0); Mean Corpuscular Volume 85.8 fL (80.0-98.0); Mean Platelet Volume 10.3 fL (9.4-12.4); Monocytes Absolute Auto 0.5 X10*3/uL (0.1-1.2); Monocytes Percent Auto 9.6 % (2-11); Neutrophils Absolute Auto 2.3 x10*3/uL (2.0-8.3); Neutrophils Percent Auto 47.9 % (45-73); Platelet Count 220 X10*3/uL (160-400); Red Blood Count 4.86 X10*6/uL (4.60-5.80); Red Cell Distribution Width 15.4 % (11.0-16.0); White Blood Count 4.8 X10*3/uL (4.8-10.8)
[2024-01-16 13:20] LABS: Alanine Aminotransferase 25 U/L (0-40); Albumin Level 4.3 g/dL (3.5-5.0); Alkaline Phosphatase 90 U/L (39-117); Amylase 39 U/L (28-100); Anion Gap 12 (12-20); Aspartate Amino Transferase 17 U/L (5-37); Bilirubin Total 0.7 mg/dL (0.0-1.0); Blood Urea Nitrogen 19 mg/dL (9-16); Calcium 9.7 mg/dL (8.4-10.2); Carbon Dioxide 27 mmol/L (22-29); Chloride 107 mmol/L (96-108); Estimated Glomerular Filt Rate > 60; Glucose Fasting 101 mg/dL (60-99); Lipase 18 U/L (8-78); Potassium 4.3 mmol/L (3.3-5.1); Sodium 142 mmol/L (135-145); Total Protein 6.9 g/dL (6.5-8.0)
== END 2024-01-16 11:39 | disposition home or self-care (01) ==
LOC: HO.LAB 11:38
PROVIDERS: Visit Provider Registered Nurse Emergency
DX: R53.1 Weakness (principal); R42 Dizziness and giddiness
CPT/HCPCS: 36415; 80053; 82150; 83690; 85025

== ENCOUNTER 2024-12-25 08:47 | Outpatient (REF) | payer OTHER, SELFPAY ==
--- OUTSIDE RECORDS SUMMARY | 2024-12-25 09:55 | XMS_ITS | Clinical Summary ---
Author Organization [facility] Address [address] [place] [address] Care Team Providers Care Family Nurse Practitioner Name Role Phone David Wheeler Primary Care Provider [phone] Allergies Active Allergy Reactions Criticality Noted Date Comments Tetanus And Diphtheria Toxoids Rash 12/25 Medications irbesartan (Avapro) 150 mg tablet Take 150 mg by mouth once a day. 12/26/2023 Active Active Problems Problem Noted Date Diagnosed Date C. difficile diarrhea 01/16/2024 Enteritis due to Yersinia enterocolitica 024 Fracture of metacarpal bone 08/26/2021 Encounters Date Type Department Care Team Description 12/10/2024 Orders Only [facility] Otolaryngology [address] [place] [id number] Luna Vicente MD Hearing loss, unspecified hearing loss type, unspecified laterality (Primary Dx) 11/19/2024 8:00 AM EDT Follow-Up [facility] Otolaryngology [address] [place] [id number] Luna Vicente MD Bilateral impacted cerumen (Primary Dx) from Last 3 Months Social History Tobacco Use Types Packs/Day Years Used Date Smoking Tobacco: Never Assessed Sex and Gender Information Value Date Recorded Sex Assigned at Male 01/11/2024 5:37 PM EDT Legal Sex Male 7:06 AM EDT Gender Identity Male 01/11/2024 5:37 PM EDT Sexual Orientation Straight 01/11/2024 5: 37 PM EDT Last Filed Vital Signs Vital Sign Reading Time Taken Comments Blood Pressure 118/78 11/19/2024 8:01 AM EDT Pulse 70 11/19/2024 8:01 AM EDT Temperature 36.5 C (97.7 F) 01/16/2024 8:23 AM EDT Respiratory Rate 18 01/16/2024 8:23 AM EDT Oxygen Saturation 98% 11/19/2024 8:01 AM EDT Inhaled Oxygen Concentration - - Weight 81.6 kg (180 lb) 01/16/2024 8:23 AM EDT Height - - Body Mass Index - - Plan of Treatment Health Maintenance Due Date Last Done Comments Cologuard 1963 Colon Cancer Screening 1965 Colonoscopy 1963 FOBT / Fit Test 1963 HIV Screening 1963 Hepatitis C Screening 1965 Sigmoidoscopy 1963 DTaP,Tdap,and Td Vaccines (1 - Tdap) 11/08/1985 Pneumococcal Vaccine: 50+ Years (1 of 1 - PCV) 11/08/2013 Zoster Vaccines (1 of 2) 11/08/2013 Alcohol/Substance Use Screening 04/16/2024 Depression Screening and Follow-Up 04/16/2024 Social Drivers of Health Annual Screening 04/16/2024 COVID-19 Vaccine (3 - 2024-2 6 season) 2024 05/10/2020, 04/21/2020 Influenza Vaccine (#1) 2024 01/14/2010 RSV Vaccine (60+ years old a nd patients) (1 - 1-dose 75+ series) 11/08/2038 Hepatitis B Vaccines Aged Out No long er eligible based on patient's age to complete this topic Insurance [employer] Care Teams Family Nurse Practitioner Relationship Specialty Start Date End Date David Wheeler [address] [place] [id number] PCP - General Family Medicine 11/19/24
--- OUTSIDE RECORDS SUMMARY | 2024-12-25 09:55 | XMS_ITS | Clinical Summary ---
Author Organization [facility] Address [address] [place] [phone] Phone Care Team Providers Care Region Manager Name Role Phone David Wheeler MD Primary Care Provider [phone] Allergies Active Allergy Reactions Criticality Noted Date Comments Tetanus And Diphtheria Toxoids Rash Low 12/25 Medications No known medications Active Problems Problem Noted Date Diagnosed Date Perineum pain, male 04/29/2024 Assessment & Plan (04/29/2024 4:43 PM EST): Evan presents for pain in the perineum after intercourse-this started 6 months ago and the last episode was in the beginning of this month. He denies any blood in his semen-blood in the urine or pain with urination. I will further work this up with the labs that he has pending from his PCP which include a CMP, CBC and a PSA. Also ordered a urinalysis with reflex. I put a referral into urology for consult-my concern is for an enlarged prostate. I informed him to call if his symptoms change or if they get worse. He understands and agrees with this plan of action. Frequent urination at night 04/29/2024 Assessment & Plan (04/29/2024 4:43 PM EST): Evan has been experiencing more frequent urination at night. He also has been experiencing pain in the perineum after intercourse-this has been going on for the past 6 months. He declined a rectal exam but was agreeable to a scrotal exam. No abnormalities of the testicles. My suspicion is for an enlarged prostate. He has labs pending from his PCP and I advised him to get these done I also ordered a urinalysis with reflex. I referred him to urology as well for a consult. I informed him to call if his symptoms get worse or if there are any other issues or concerns. He understands and agrees. Rectal abnormality 04/29/2024 Assessment & Plan (04/29/2024 4:45 PM EST): Evan notes that he has felt a small nodule in the rectum-he declines a rectal exam today. He denies any rectal bleeding. He notes that he had a colonoscopy done 3 years ago at [facility] and he is due for repeat in 2 more years. He notes that he will obtain the scan and this will be added to the media file in [facility]. I advised him to follow-up with his PCP if there are any other issues or concerns with this. He understands and agrees. Rash and other nonspecific skin eruption Assessment & Plan (02/18/2024 8:21 AM EST): I diagnosed Evan with a rash on his hands secondary to irritation likely from frequent handwashing. He recently had 2 infections-1 being C. difficile. He is currently asymptomatic in regards to this. 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 I wrote for triamcinolone cream-to be used as directed and I also gave him guidance to use moisturizing cream in between. I advised him to try to keep some of the oil on the skin as this is a protective barrier. I put a referral to Derm-if this does not improve he will call if there are any other issues or concerns. He understands and agrees. Skin lesion of hand 02/18/2024 Assessment & Plan (02/18/2024 8:22 AM EST): Evan presents for skin lesion on the dorsal aspect of his left hand-he would like this removed and we discussed this process. He was agreeable to coming back in 2 weeks for this to be removed. He notes that has been here for about a month now- it is not getting better. He is concerned that this could be some form of a skin cancer. I agree and thus I will have this taken off with biopsy in 2 weeks. He understands and agrees. Benign essential hypertension 01/17/2024 Clostridium difficile infection 01/17/2024 Benign paroxysmal positional vertigo 01/17/2024 Encounters Date Type Department Care Team Description 11/10/2024 3:00 PM EDT Office Visit [facility] [address] [place] [address] David Wheeler MD Chronic RLQ pain (Primary Dx); Fluid level behind tympanic membrane, bilateral 10/16/2024 Telephone [facility] [address] [place] [address] Kamilla Young Triage (Green + head cold ) from Last 3 Months Immunizations Immunization Administration Dates Next Due COVID-19 (Pre-02/05) Pfizer Vaccine, mRNA, PF ,04/21/2020 Influenza, Unspecified Formulation 01/14/2010 Social History Tobacco Use Types Packs/Day Years Used Date Smoking Tobacco: Never Smokeless Tobacco: Never Tobacco Cessation:Counseling Given: Not Answered Child or Family Care Answer Date Record ed Do you have problems with on e of the following making it difficult for you to work, study, or receive health care? No 01/17/2024 Education Answer Date Recorded Are you interested in help w ith more adult education (for example, completing high school, GED, job training, learning the [place] language, technical skills, or developing parenting skills)? No 01/17/2024 Are you concerned about learning? Not on file 01/17/2024 No 01/17/2024 Yes 01/17/2024 Food Answer Date Recorded Within the past 6 months we worried whether our food would run out before we got money to buy more. I choose not to answer 01/17/2024 Within the past 6 months the food we bought just didn't last and we didn't have enough money to get more. I choose not to answer 01/17/2024 Residential Stability Answer Date Recor ded What is your housing situation today? I have nico sing 01/17/2024 How many times have you move d in the past 12 months? Zero (I did not move) 01/17/2024 Paying for Meds Answer Date Recorded Do you have trouble paying for medicines? No 01/17/2024 Paying Utility Bills Answer Date Record ed Do you have trouble paying your heating or elect ricity bill? No 01/17/2024 Transportation Answer Date Recorded Has the lack of transportati on kept you from medical appointments or from getting medications? I choose not to answer 01/17/2024 Digital Access Answer Date Recorded Yes 01/17/2024 No 01/17/2024 Do you have reliable internet access at home? I choose not to answer 01/17/2024 Do you have a device (e.g., phone, tablet, computer) with a working camera? No 01/17/2024 Intimate Partner Violence Answer Date R ecorded Denied Basic Needs Not on file 01/17/2024 In the past 12 months have y ou been in a relationship with a person who hurts, threatens, or tries to control you? No 01/17/2024 Worried food would run out Not on file 01/16 In the past 12 months have y ou been in a relationship with a person who hurts, threatens, or tries to control you? No 01/17/2024 Sex and Gender Information Value Date Recorded Sex Assigned at Not on file Legal Sex Male 5:00 PM EST Gender Identity Not on file Sexual Orientation Not on file Last Filed Vital Signs Vital Sign Reading Time Taken Comments Blood Pressure 110/78 11/10/2024 3:14 PM EDT Pulse 68 11/10/2024 3:14 PM EDT Temperature 36.6 C (97.9 F) 07/03/2024 8:21 AM EDT Respiratory Rate - - Oxygen Saturation 98% 11/10/2024 3:14 PM EDT Inhaled Oxygen Concentration - - Weight 76.2 kg (168 lb) 11/10/2024 3:14 PM EDT Height 174 cm (5' 8.5 ) 11/10/2024 3:14 PM EDT Body Mass Index 25.17 11/10/2024 3:14 PM EDT Plan of Treatment Upcoming Encounters Date Type Department Care Team (Late st Contact Info) Description 08/12/2025 4:00 PM EDT Office Visit [facility] [address] [place] [address] Souleymane March MD [address] [place] [address], [facility] [address] [email or web address] Maintenance Due Date Last Done Comments HEPATITIS C SCREENING 11/08/1981 HIV ONE-TIME SCREENING (18-6 5 YEARS) 11/08/1981 COLOGUARD 11/08/2008 COLONOSCOPY 11/08/2008 COLORECTAL CANCER SCREENING 11/08/2008 FIT TEST 11/08/2008 FOBT 11/08/2008 SIGMOIDOSCOPY 11/08/2008 VIRTUAL COLONOSCOPY 11/08/2008 PNEUMOCOCCAL VACCINES (50+ years) (1 of 1 - PCV) 11/08/2013 ZOSTER VACCINES (1 of 2) 11/08/2013 COVID-19 VACCINE (3 - 2023-2 5 season) 2023 05/10/2020, 04/21/2020 INFLUENZA VACCINE (#1) 2024 01/14/2010 DEPRESSION SCREENING 01/16/2025 01/17/2024 BLOOD PRESSURE 05/13/2025 11/10/2024 SCREENING FOR DIABETES 08/31/2027 , 08/30/2024 LIPID PANEL 05/03/2029 05/03/2024 RSV VACCINE (1 - 1-dose 75+ series) 11/08/2038 SMOKING STATUS SCREENING (On ce After 26 Yrs) Completed 07/03/2024 HEPATITIS A VACCINES Aged Out No long er eligible based on patient's age to complete this topic HIB VACCINES Aged Out No longer eligi ble based on patient's age to complete this topic MENINGOCOCCAL VACCINES (ACWY) Aged Out No longer eligible based on patient's age to complete this topic MENINGOCOCCAL VACCINES (B) Aged Out N o longer eligible based on patient's age to complete this topic Medical Devices Not on file Procedures Procedure Name Priority Date/Time Associated Diagnosis Comments LIPID PANEL Routine 05/03/2024 8:45 AM EST Benign paroxysmal positional vertigo, unspecified laterality from Last 3 Months or Most Recently Relevant to Health Maintenance Results * (ABNORMAL) Lipid panel (05/03/2024 8:45 AM EST) HDL 51 mg/dL [facility] Comment: Interpretation <40 mg/dL: Low HDL cholesterol (major risk factor for CHD) Greater than or equal to 60 mg/dL: High HDL cholesterol ( negative risk factor for CHD) HDL - cholesterol is affected by a number of factors, e.g. smoking, excerise, hormones, sex and age. CHOLESTEROL 158 0 - 240 mg/dL [facility] TRIGLYCERIDES 60 30 - 160 mg/dL [facility] LDL 95 50 - 129 mg/dL [facility] Comment: LDL levels in terms of risk for coronary heart disease: <100 mg/dL: Optimal 100-129 mg/dL: Near or above optimal 130-159 mg/dL: Borderline high 160-189 mg/dL: High >190 mg/dL: Very High CARDIAC RISK RATIO 3.1(L) 3.4 - 5.0 C [facility] Blood 05/03/2024 8:45 AM EST 05/03/2024 8:50 AM EST us David Wheeler MD LAB BLOOD ORDERABLES Final Resul t [facility] [address] [place] [address] from Last 3 Months or Most Recently Relevant to Health Maintenance Insurance [facility] [employer] B[employer]MIN[employer] B[employer] Care Teams Region Manager Relationship Specialty Start Date End Date David Wheeler MD [address] [place] [address] [address] [place], [place] [id number] [email or web address] PCP - General Family Medicine 01/17/24 Additional Source Comments The information contained in this document represents components of the legal health record. It is not the complete legal health record.[facility]
== END 2024-12-25 08:48 | disposition home or self-care (01) ==
LOC: HO.SH 08:47
PROVIDERS: Visit Provider Student in an Organized Health Care Education/Training Program
DX: Z01.118 Encounter for examination of ears and hearing with other abnormal findings (principal); H90.12 Conductive hearing loss, unilateral, left ear, with unrestricted hearing on the contralateral side
CPT/HCPCS: 92557; 92567

== ENCOUNTER 2025-02-27 06:00 | Outpatient (REF) | payer OTHER, SELFPAY ==
[2025-02-27 10:39] LABS: CDiff Gene PCR NEGATIVE (Negative)
[2025-02-27 12:24] LABS: E. coli EAEC Not Detected (Not Detect.); E. coli EPEC Not Detected (Not Detect.); E. coli ETEC Not Detected (Not Detect.); E. coli STEC Not Detected (Not Detect.); Shigella sp./EIEC Not Detected (Not Detect.)
== END 2025-02-27 06:01 | disposition home or self-care (01) ==
LOC: HO.LNP 06:00
PROVIDERS: Visit Provider Internal Medicine Pulmonary Disease
DX: R19.7 Diarrhea, unspecified (principal)
CPT/HCPCS: 87493; 87507